=== PATIENT | female | born 1935 | race Caucasian/White ===

== ENCOUNTER → 2016-07-16 | Outpatient (CLI) | payer OTHER ==
[~2016-07-16] MED LIST: ACET-1256 PO; ACET-24 PO; ASPEC325 PO; ASPI81TA28 PO; CALC500C3 PO; CITA20TA9 PO; CLC100X PO; CYAN250T PO; DICY10CA12 PO; DTR5 PO; FRRG PO; METF500T5 PO; METH500T3 PO; MULT-506 PO; MULT1TAB22 PO; OMEP20CA9 PO; POLY335019 PO; PYRI100T4 PO; ROSU5TAB PO; TOLT2TAB9 PO; TRAM-453 PO; ULT50X PO
[2016-07-16 12:29] LABS: ESTIMATED AVERAGE GLUCOSE 134 mg/dl; HA1C FLAG Normal (Normal)
[2016-07-16 13:02] LABS: ALT/SGPT 21 U/L (12-78); AST/SGOT 9 U/L (15-37); BLOOD UREA NITROGEN 14 mg/dl (7-18); BUN/CREATININE RATIO 14.7 (10-20); CARBON DIOXIDE 27 mmol/L (21-32); CHLORIDE 105 mmol/L (98-107); CREATININE 0.94 mg/dl (0.60-1.20); GLUCOSE 126 mg/dl (70-99); POTASSIUM 4.2 mmol/L (3.5-5.1); SODIUM 139 mmol/L (136-145)
[2016-07-16 13:05] LABS: ALB/GLOB RATIO 1.2 (0.9-2); ALKALINE PHOSPHATASE 89 U/L (45-117); CHOLESTEROL 175 mg/dl (0-200); CHOLESTEROL/HDL RATIO 3.3; HDL CHOLESTEROL 53 mg/dl; LDL CHOLESTEROL CALCULATED 87 mg/dl; TRIGLYCERIDES 176 mg/dl (0-150); VERY LOW DENSITY LIPOPROT CALC 35 mg/dl
== END | disposition home or self-care (01) ==
LOC: C.LAB1850 10:42
PROVIDERS: ATTEND Internal Medicine
DX: E11.9 Type 2 diabetes mellitus without complications (principal)

== ENCOUNTER → 2016-07-30 | Outpatient (CLI) | payer OTHER ==
[2016-07-30 15:36] LABS: BASO % 0.4 %; BASO ABS # 0.03 K/uL (0-0.2); COMPLETE YES; EOS % 2.1 %; LYMPH ABS # 2.22 K/uL (1.2-3.4); MEAN CELL VOLUME 90.3 fL (80-100); MEAN CORPUSCULAR HEMOGLOBIN 30.2 pg (25-34); MEAN CORPUSCULAR HGB CONC 33.4 g/dl (32-36); MEAN PLATELET VOLUME 11.8 fL (7.4-10.4); MONO % 7.4 %; NEUT % 62.1 %; PLATELET COUNT 302 K/uL (130-400); RED BLOOD COUNT 4.21 M/uL (4.2-5.4); WHITE BLOOD COUNT 7.94 K/uL (4.8-10.8)
[2016-07-30 16:08] LABS: MAGNESIUM 1.9 mg/dl (1.8-2.4); THYROID STIMULATING HORMONE 1.05 uIu/ml (0.300-4.500)
--- NOTE | 2016-08-05 13:21 | CODING QUERY MEDICAL NECESSITY ---
SUPPORTING DIAGNOSIS NEEDED Dr. Daly, A supporting diagnosis is required for the test/procedure performed on this patient in order for us to be reimbursed by the patient's insurance. Please provide a supporting diagnosis for the following test/procedure listed below next to the test name along with your signature. *If there is no additional diagnosis for this patient that would support the following test/procedure please document that below next to the test/procedure. Test(s)/Procedure(s) that require a supporting diagnosis: * ([id number]) VITAMIN D ASSAY DIAGNOSIS: DATE OF SERVICE: 07/30/16 Provider Signature: Date: Thank you Wale Palomino [facility] Information Management Once completed, please kindly fax back to [phone] For questions please call [phone]
== END | disposition home or self-care (01) ==
LOC: C.LAB1850 13:56
PROVIDERS: ATTEND Internal Medicine
DX: Z00.00 Encounter for general adult medical examination without abnormal findings (principal); E83.42 Hypomagnesemia; E53.8 Deficiency of other specified B group vitamins; M85.80 Other specified disorders of bone density and structure, unspecified site; M25.50 Pain in unspecified joint

== ENCOUNTER → 2016-08-23 | Outpatient (CLI) | payer OTHER ==
[~2016-08-23] MED LIST changes: +GADAVIST IV PRN
--- NOTE | 2016-08-23 13:18 | DIAGNOSTIC IMAGING REPORT ---
MRI brain/internal auditory canals BRAIN COMBO FOR IAC CLINICAL HISTORY: IAC RT HEARING LOSS mental status change. Hearing loss. TECHNIQUE: Multi axial MRI acquisition pre and post gadolinium enhancement. Particular attention to the internal artery canals COMPARISON STUDY: None FINDINGS: Examination confirms the presence of a small 2 mm fat-containing nodule medial aspect right internal auditory canal. This shows no significant postcontrast enhancement. This suggestive of of a small lipoma of the right internal artery canal. 7 then 8th nerves otherwise are unremarkable with no evidence for abnormal postcontrast enhancement. Semicircular canals appear uniform. All remaining components of the study are unremarkable. Moderate chronic small vessel change involving the periventricular and deep white matter regions. IMPRESSION: 1. 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 2. This is immediately adjacent to and potentially encircles the posterior margin of the right 8th nerve. 3. No evidence for an enhancing intracanalicular lesion. 4. Mild chronic small vessel change of the deep white matter regions. 5. Study is otherwise negative. Electronically signed by: Jabier Francisco M.D. 08/23/2016 1:17 PM Dictated Date/Time: 08/23/2016 12:56 PM
== END | disposition home or self-care (01) ==
LOC: C.OPENMRI 10:43
PROVIDERS: ATTEND Hospitalist
DX: H91.90 Unspecified hearing loss, unspecified ear (principal); D17.79 Benign lipomatous neoplasm of other sites

== ENCOUNTER → 2016-11-29 | Outpatient (CLI) | payer OTHER ==
[~2016-11-29] MED LIST changes: -GADAVIST IV PRN
[2016-11-29 12:53] LABS: BLOOD UREA NITROGEN 14 mg/dl (7-18); BUN/CREATININE RATIO 14.1 (10-20); CARBON DIOXIDE 28 mmol/L (21-32); CHLORIDE 106 mmol/L (98-107); CREATININE 0.96 mg/dl (0.60-1.20); GLUCOSE 127 mg/dl (70-99); MAGNESIUM 2.1 mg/dl (1.8-2.4); POTASSIUM 4.9 mmol/L (3.5-5.1); SODIUM 140 mmol/L (136-145)
[2016-11-29 12:56] LABS: CHOLESTEROL 206 mg/dl (0-200); CHOLESTEROL/HDL RATIO 4.8; HDL CHOLESTEROL 43 mg/dl; LDL CHOLESTEROL CALCULATED 120 mg/dl; TRIGLYCERIDES 214 mg/dl (0-150); VERY LOW DENSITY LIPOPROT CALC 43 mg/dl
[2016-11-29 12:57] LABS: CALCIUM 9.6 mg/dl (8.5-10.1)
== END | disposition home or self-care (01) ==
LOC: C.LAB 10:30
PROVIDERS: ATTEND Internal Medicine
DX: E83.42 Hypomagnesemia (principal); E11.9 Type 2 diabetes mellitus without complications; M54.2 Cervicalgia

== ENCOUNTER → 2017-01-03 | Outpatient (CLI) | payer OTHER ==
[~2017-01-03] MED LIST changes: -DTR5 PO; -MULT-506 PO; -TRAM-453 PO
--- NOTE | 2017-01-03 16:00 | MAMMOGRAPHY REPORT ---
BILATERAL DIGITAL SCREENING MAMMOGRAM WITH CAD: 01/03/2017 CLINICAL HISTORY: Routine screening. Patient has no complaints. TECHNIQUE: Bilateral CC, MLO and repeat left MLO views were obtained. Current study was also evaluat ed with a Computer Aided Detection (CAD) system. COMPARISON: Comparison is made to exams dated: 01/01/2016 mammogram, 12/30/2014 mammogram, 12/26/2013 m ammogram, 12/20/2012 mammogram, 12/20/2011 mammogram, and 12/15/2010 mammogram - [facility] nter. BREAST COMPOSITION: The tissue of both breasts is heterogeneously dense, which may obscure small mas ses. FINDINGS: The parenchymal pattern is similar to prior mammograms. No developing mass, architectural distortion or cluster of suspicious microcalcifications is seen in either breast. IMPRESSION: ACR BI-RADS CATEGORY 2: BENIGN There is no mammographic evidence of malignancy. A 1 year screening mammogram is recommended. The pa tient will receive written notification of the results. Approximately 10% of breast cancers are not detected with mammography. A negative mammographic report should not delay biopsy if a clinically suggestive mass is present. [place] Chaudhari M.D. ay/:01/03/2017 14:35:10 Global Regulatory Affairs Manager: Autumn PERRY(Oralia)(Ricardo)(BD), [facility] letter sent: Normal 1/2 BI-RADS Code: ACR BI-RADS Category 2: Benign
== END | disposition home or self-care (01) ==
LOC: C.MAMM 13:48
PROVIDERS: ATTEND Internal Medicine
DX: Z12.31 Encounter for screening mammogram for malignant neoplasm of breast (principal)

== ENCOUNTER 2017-01-04 05:07 | Inpatient (IN) | payer OTHER ==
[2016-11-29 10:30] VITALS: BMI 27.0
--- NOTE | 2016-11-29 11:09 | PAT Medication Instructions ---
Service Date November 29, 2016. Current Home Medication List Acetaminophen (Tylenol), 500 MG PO HS PRN for Pain Aspirin (Aspirin Ec), 81 MG PO HS Calcium Carbonate (Tums), 1 DOSE PO UD Citalopram Hydrobromide (Celexa), 20 MG PO QDL Cyanocobalamin (Vitamin B-12), Unknown Dose PO WK Dicyclomine Hcl (Dicyclomine Hcl), 10 MG PO DAILY Docusate Sodium (Colace), 100 MG PO BID Metformin Hcl Er (Glucophage Er), 500 MG PO TID Methylcellulose (Laxative) (Citrucel), 1 TAB PO UD PRN for Constipation Methylcellulose (Laxative) (Citrucel), 1 DOSE PO UD PRN for PRN Multiple Vitamins W/ Minerals (One Daily For Women), 1 TAB PO QDL Omeprazole (Prilosec), 20 MG PO QAM Polyethylene Glycol 3350 (Miralax), 17 GM PO DAILY Pyridoxine (Vitamin B6), 100 MG PO QDD Rosuvastatin Calcium (Crestor), 5 MG PO 2XWK Tolterodine Tartrate (Tolterodine Tartrate), 4 MG PO QDL Medication Instructions For Your Scheduled Surgery - Continue as directed: Rosuvastatin Calcium (Crestor), 5 MG PO 2XWK Cyanocobalamin (Vitamin B-12), Unknown Dose PO WK - Hold the following medications 48 hours prior to surgery: Metformin Hcl Er (Glucophage Er), 500 MG PO TID - Hold the following medications the morning of surgery: Pyridoxine (Vitamin B6), 100 MG PO QDD Polyethylene Glycol 3350 (Miralax), 17 GM PO DAILY Methylcellulose (Laxative) (Citrucel), 1 DOSE PO UD PRN for PRN Multiple Vitamins W/ Minerals (One Daily For Women), 1 TAB PO QDL Docusate Sodium (Colace), 100 MG PO BID Dicyclomine Hcl (Dicyclomine Hcl), 10 MG PO DAILY Calcium Carbonate (Tums), 1 DOSE PO UD Methylcellulose (Laxative) (Citrucel), 1 TAB PO UD PRN for Constipation Tolterodine Tartrate (Tolterodine Tartrate), 4 MG PO QDL - Take the following medications the morning of surgery with a sip of water: Omeprazole (Prilosec), 20 MG PO QAM Acetaminophen (Tylenol), 500 MG PO HS PRN for Pain (if needed) Citalopram Hydrobromide (Celexa), 20 MG PO QDL - Take the following medications as scheduled the night before surgery: Methylcellulose (Laxative) (Citrucel), 1 DOSE PO UD PRN for PRN (if needed) Docusate Sodium (Colace), 100 MG PO BID Methylcellulose (Laxative) (Citrucel), 1 TAB PO UD PRN for Constipation (if needed) Aspirin (Aspirin Ec), 81 MG PO HS (okay to continue per surgeon) Acetaminophen (Tylenol), 500 MG PO HS PRN for Pain (if needed) If you have any questions please call us at [phone] (Marci Bunn PA-C) or [phone] or [phone]
[2016-11-29 11:34] LABS: BASO % 0.6 %; BASO ABS # 0.04 K/uL (0-0.2); COMPLETE YES; EOS % 2.2 %; HEMATOCRIT 37.9 % (37-47); IG% 0.1 %; LYMPH ABS # 2.01 K/uL (1.2-3.4); MEAN CELL VOLUME 88.1 fL (80-100); MEAN CORPUSCULAR HEMOGLOBIN 29.3 pg (25-34); MEAN CORPUSCULAR HGB CONC 33.2 g/dl (32-36); MEAN PLATELET VOLUME 10.6 fL (7.4-10.4); MONO % 8.5 %; NEUT % 60.6 %; PLATELET COUNT 268 K/uL (130-400); WHITE BLOOD COUNT 7.19 K/uL (4.8-10.8)
[2016-11-29 11:45] LABS: PARTIAL THROMBOPLASTIN RATIO 0.9; PROTHROMBIN TIME (PATIENT) 10.4 SECONDS (9.0-12.0)
[2016-11-29 12:04] LABS: ESTIMATED AVERAGE GLUCOSE 140 mg/dl; HA1C FLAG Normal (Normal)
--- NOTE | 2016-11-29 12:34 | DIAGNOSTIC IMAGING REPORT ---
CHEST PREADMISSION(PA/LAT) CLINICAL HISTORY: Preoperative evaluation. COMPARISON STUDY: No previous studies for comparison. FINDINGS: Lung volumes are normal. Lungs are clear. There is no pneumothorax or pleural effusion. Cardiac size is normal. Mediastinal contours are normal. There is no evidence of pulmonary edema. There is a calcified left lower lung nodule. IMPRESSION: No acute cardiopulmonary findings. Electronically signed by: Brendon Gomes M.D. 11/29/2016 12:33 PM Dictated Date/Time: 11/29/2016 12:32 PM
--- NOTE | 2016-12-30 21:49 | HISTORY & PHYSICAL EXAMINATION ---
DATE OF ADMISSION: 01/04/2017 CHIEF COMPLAINT: Right hip pain. HISTORY OF PRESENT ILLNESS: The patient is a 81-year-old female, who presents for surgical treatment of her right hip. She has got several years history of increasing right hip pain and discomfort followed by Dr. Guerrero initially. He told that she did not need surgery on her hip. She then saw the PA, who told that she did. She has been a little bit confused about his situation, now presents for a possible surgical treatment. She describes buttock pain and groin pain, thigh pain radiating down to her knee. No numbness or radicular symptoms. She has got constant pain. The more she walks, the more it hurts. She has difficulty putting her shoes and socks on. She would like to have this fixed. PAST MEDICAL HISTORY: Past medical history is significant for: 1. Diabetes with a hemoglobin A1c of 6.5. 2. Elevated cholesterol. 3. Depression. 4. Peptic ulcer disease. 5. Mild gastroesophageal reflux with hiatal hernia. PAST SURGICAL HISTORY: Include finger surgery. ALLERGIES: SULFA WHICH CAUSE HIVES. ALSO DESCRIBES ALLERGY TO NIACIN. CURRENT MEDICINES: 1. Metformin 500 mg three times a day. 2. Oxybutynin 5 mg. 3. Omeprazole 20 mg. 4. Crestor 5 mg twice a day. 5. Citrucel once a day. 6. Colace 100 mg twice a day. 7. Baby aspirin once a day. 8. Ibuprofen p.r.n. 9. Vitamin B6. 10. Vitamin B12. 11. Tums. 12. Unspecified medicine 13. Magnesium. 14. Dicyclomine. SOCIAL HISTORY: A 81-year-old female patient from [place]. She is . FAMILY HISTORY: Significant for heart disease, diabetes and breast cancer. REVIEW OF SYSTEMS: Negative for chest pain and shortness of breath. No history of DVT. She does have diabetes which is reasonably well-controlled. No known bleeding problems. PHYSICAL EXAMINATION: GENERAL: Reveals a pleasant elderly female. She looks to be in reasonably good health. HEENT: Benign. NECK: Supple. No lymphadenopathy. LUNGS: Clear to auscultation. HEART: Has a regular rate and rhythm. ABDOMEN: Soft, nontender, nondistended. EXTREMITIES: Grossly neurovascularly intact except as follows. Examination of the right leg reveals the patient walks with an antalgic gait. Leg lengths clinically appear pretty equal. She does have stiffness with hip motion. Hip internal rotation recreates her buttock pain. Internal rotation is neutral. External rotation is 25. Slight flexion contracture. Negative straight leg raise. X-RAYS: X-rays of the right hip were reviewed. X-rays show advanced right hip DJD. She has got complete loss of her joint space. She has got osteophytes around the acetabulum. I did review her lumbar spine films. It shows some mild arthritic changes in her spine. Fairly mild stenosis particularly at L5-S1. ASSESSMENT: A 81-year-old white female with right hip pain and discomfort consistent with advanced hip arthritis. It is limiting her lifestyle and she would like to have her hip fixed. PLAN: We are going to take her to the operating room and do a right total hip replacement. The risks and benefits of this procedure were explained to the patient including, but not limited to DVT, PE, , infection, neurological injury, vascular injury, bleeding problem, pain, limited range of motion, stiffness, failure to relieve her symptoms, incomplete relief of symptoms, need for further surgery in the future, fracture, leg length inequality, nerve palsy, dislocation, etc. The patient understands and desires to proceed. Informed consent was obtained. I did talk to her that this can help her hip pain and not necessarily her back pain. She is aware of that. She knows to hold her metformin 2 days preop. She is planning to be discharged to home using [facility] home health program. She will hold her ibuprofen 10 days preop. I will see her back 2 weeks postop. JASON
[2017-01-04] VITALS (29 sets, daily range): BP systolic 86–142; BP diastolic 49–71; PULSE 54–78; TEMP 36.3–37; O2SAT 93–100; Ht 165.1 cm; Wt 74.9 kg
[~2017-01-04] VITALS: Ht 165.1 cm; Wt 74.9 kg
[~2017-01-04 05:07] MED LIST changes: -ACET-24 PO; -ASPEC325 PO; -FRRG PO; -ULT50X PO
[2017-01-04] MEDS ORDERED: CEFAZOLIN 2000 MG/60 ML D5W 60 ML IV SCH (06:00)
[2017-01-04] MEDS ORDERED: SCOPOLAMINE 1.5 MG TDSY TD SCH (06:00)
[2017-01-04] MEDS ORDERED: METOCLOPRAMIDE HCL 10 MG TAB PO SCH (06:00)
[2017-01-04] MEDS ORDERED: ACETAMINOPHEN 500 MG TAB PO SCH (06:00)
[2017-01-04] MEDS ORDERED: LACTATED RINGER'S 1000ML 1,000 ML IV SCH ×2 (06:00)
[2017-01-04] MEDS ORDERED: TRANEXAMIC ACID INJ 1,000 MG in SODIUM CHLORIDE 0.9% 100ML 100 ML IV SCH ×2 (06:00→14:30)
[2017-01-04] MEDS ORDERED: LACTATED RINGER'S 1000ML 500 ML IV ONE (06:00)
[2017-01-04] MEDS ORDERED: FAMOTIDINE 20 MG TAB PO SCH (06:00)
[2017-01-04] MEDS ORDERED: GABAPENTIN 300 MG CAP PO SCH (06:00)
[2017-01-04] MEDS ORDERED: BUPIVACAINE/EPINEPHRINE 0.5% MPF 1:200,000 10 ML VIAL ONE (06:36)
[2017-01-04] MEDS ORDERED: BUPIVACAINE 0.5 % 5 MG/1 ML PF 10ML VIAL ONE (06:38)
[2017-01-04] MEDS ORDERED: MIDAZOLAM HCL 1 MG/ML 2ML VIAL ONE ×2 (06:42)
[2017-01-04] MEDS ORDERED: FENTANYL CITRATE INJ 50 MCG/1 ML 2 ML VIAL ONE ×2 (06:42→08:01)
[2017-01-04] MEDS ORDERED: MoRPHine SULFATE PF 1 MG/ML 10 ML AMP/VIAL ONE (06:44)
--- NOTE | 2017-01-04 06:49 | History & Physical Bridge Note ---
H&P Re-Evaluation Bridge Note: I have examined the patient, reviewed the History & Physical and in the interval since the performance of the History & Physical I have noted the following changes of clinical significance: No changes noted
[2017-01-04] MEDS ORDERED: DC INTRASPINAL MORPHINE SCH (06:50)
[2017-01-04] MEDS ORDERED: BACITRACIN 50000 UNIT VIAL ONE (06:51)
[2017-01-04] MEDS ORDERED: DiphenhydrAMINE HCL 50 MG/ML VIAL ONE (07:13)
[2017-01-04] MEDS ORDERED: ONDANSETRON INJ 2 MG/ML 2 ML VIAL ONE (07:13)
[2017-01-04] MEDS ORDERED: SODIUM CHLORIDE 0.9% 1000ML 1,000 ML IV PRN (07:27)
[2017-01-04] MEDS ORDERED: NALOXONE HCL INJ 0.08 MG in SYRINGE 1.8 ML IV PRN (07:27)
[2017-01-04] MEDS ORDERED: LACTATED RINGER'S 1000ML 500 ML IV PRN (07:27)
[2017-01-04] MEDS ORDERED: NALOXONE HCL INJ 1 MG in SODIUM CHLORIDE 0.9% 1000ML 1,000 ML IV PRN ×4 (07:27)
[2017-01-04] MEDS ORDERED: NALBUPHINE HCL INJ 10 MG/ML AMP IV PRN (07:30)
[2017-01-04] MEDS ORDERED: ONDANSETRON INJ 2 MG/ML 2 ML VIAL IV PRN ×3 (07:30→08:30)
[2017-01-04] MEDS ORDERED: MoRPHine SULFATE PF 1 MG/ML 10 ML AMP/VIAL EPI PRN (07:30)
[2017-01-04] MEDS ORDERED: ATROPINE SULFATE 0.1 MG/ML 5ML SYR IV PRN (07:30)
[2017-01-04] MEDS ORDERED: DiphenhydrAMINE HCL 50 MG/ML VIAL IV PRN (07:30)
[2017-01-04] MEDS ORDERED: MEPERIDINE HCL 25 MG/ML CARP IV PRN ×2 (07:30)
[2017-01-04] MEDS ORDERED: NO NARCOTICS OR SEDATIVES SCH (07:30)
[2017-01-04] MEDS ORDERED: PHENYLEPHRINE 100MCG/ML 5ML SYR IV PRN (07:30)
[2017-01-04] MEDS ORDERED: NALOXONE HCL 0.4 MG/1 ML VIAL/CARP IV PRN (07:30)
[2017-01-04] MEDS ORDERED: PROMETHAZINE HCL INJ 6.25 MG in SODIUM CHLORIDE 0.9% 50ML 50 ML IV PRN (07:30)
[2017-01-04] MEDS ORDERED: EpHEDrine SULFATE INJ 50 MG/ML AMP IV PRN ×2 (07:30)
[2017-01-04] MEDS ORDERED: KETOROLAC TROMETHAMINE 30 MG/ML VIAL IV. PRN ×2 (07:30)
[2017-01-04] MEDS ORDERED: EpHEDrine SULFATE INJ 50 MG/ML AMP ONE (07:31)
--- NOTE | 2017-01-04 08:23 | [facility] Post Operative Brief Note ---
Immediate Operative Summary Operative Date Jan 04, 2017. Pre-Operative Diagnosis Right Hip Advanced Degenerative Joint Disease Post-Operative Diagnosis Right Hip Advanced Degenerative Joint Disease Procedure(s) Performed Right Total Hip Arthroplasty--Uncemented Surgeon Dr. Gore Explosive Technician Surgeon(s) ZULLY Graham Estimated Blood Loss 200 ml Findings Right Hip DJD Fluids (cc crystalloids) 1500 cc Specimens A. Right Femoral Head Drains None Anesthesia Spinal Complication(s) None Disposition Recovery Room / PACU
[2017-01-04] MEDS ORDERED: METHYLCELLULOSE POWDER 454 GM JAR PO PRN (08:30)
[2017-01-04] MEDS ORDERED: BISACODYL 10 MG SUPP PR PRN (08:30)
[2017-01-04] MEDS ORDERED: METOCLOPRAMIDE HCL INJ 5 MG/ML 2 ML VIAL IV PRN (08:30)
[2017-01-04] MEDS ORDERED: MAGNESIUM HYDROXIDE SUSP 30 ML UDC PO PRN (08:30)
[2017-01-04] MEDS ORDERED: ALUMINUM/MAGNESIUM/SIMETH (MAALOX MAX) 30 ML UDC PO PRN (08:30)
[2017-01-04] MEDS ORDERED: ZOLPIDEM TARTRATE 5 MG TAB PO PRN (08:30)
[2017-01-04] MEDS ORDERED: GLUCOSE 10 TABS/TUBE PO PRN (08:45)
[2017-01-04] MEDS ORDERED: DEXTROSE 50% 50 ML SYR IV PRN (08:45)
[2017-01-04] MEDS ORDERED: GLUCOSE 40% GEL 15 GM TUBE PO PRN (08:45)
[2017-01-04] MEDS ORDERED: GLUCAGON FOR INJ 1 MG VIAL SQ PRN (08:45)
[2017-01-04] MEDS ORDERED: DOCUSATE SODIUM 100 MG CAP PO SCH (09:00)
[2017-01-04] MEDS: POLYETHYLENE (MIRALAX) 17 GM PACK PO SCH (09:00)
[2017-01-04] MEDS ORDERED: NON-FORMULARY MEDICATION (Omeprazole (Prilosec) 20 MG) PO SCH (09:00)
--- NOTE | 2017-01-04 09:18 | Anesthesiology Progress Note ---
Anesthesia Post Op Note Date & Time Jan 04, 2017 at 09:18 Vital Signs Pain Intensity: 0 Vital Signs Past 12 Hours Date Time Temp Pulse Resp B/P (MAP) Pulse Ox O2 Delivery O2 Flow Rate FiO2 01/04/17 09:15 36.5 01/04/17 09:12 59 15 100 01/04/17 09:12 60 15 01/04/17 09:11 95/85 01/04/17 09:07 59 16 100 01/04/17 09:07 59 16 01/04/17 09:06 114/50 01/04/17 09:02 61 19 98 01/04/17 09:02 61 19 01/04/17 09:01 125/48 01/04/17 08:57 60 9 01/04/17 08:57 60 9 100 01/04/17 08:56 120/72 01/04/17 08:52 61 16 01/04/17 08:52 61 16 100 01/04/17 08:51 132/51 01/04/17 08:47 61 12 01/04/17 08:47 61 12 100 01/04/17 08:46 130/50 01/04/17 08:44 Mask 3 01/04/17 08:42 65 13 01/04/17 08:42 63 13 100 01/04/17 08:41 62 17 01/04/17 08:41 63 17 128/50 100 01/04/17 08:36 64 10 01/04/17 08:36 64 10 133/54 100 01/04/17 08:31 66 13 124/50 100 01/04/17 08:31 66 13 01/04/17 08:26 64 15 126/48 99 01/04/17 08:26 65 15 01/04/17 08:24 114/43 01/04/17 08:21 36. 63 14 114/43 99 Mask 10 01/04/17 05:38 36.7 61 20 142/71 94 Room Air Notes Mental Status: alert / awake / arousable, participated in evaluation Pt Amnestic to Procedure: Yes Nausea / Vomiting: adequately controlled Pain: adequately controlled Airway Patency, RR, SpO2: stable & adequate BP & HR: stable & adequate Hydration State: stable & adequate Anesthetic Complications: no major complications apparent
--- NOTE | 2017-01-04 09:27 | DIAGNOSTIC IMAGING REPORT ---
AP PELVIS, CROSSTABLE LATERAL RIGHT HIP History: Right total hip arthroplasty. Degenerative arthritis. Postop. FINDINGS: The patient is status post a right total hip arthroplasty. The hardware is intact. No fracture or dislocation. Skin charly are in place. IMPRESSION: Right total hip arthroplasty. No evidence for hardware complication Electronically signed by: Rubén Tomlinson M.D. 01/04/2017 9:26 AM Dictated Date/Time: 01/04/2017 9:25 AM
[2017-01-04] MEDS: DOCUSATE SODIUM 100 MG CAP PO SCH ×2 (10:43→20:51)
[2017-01-04] MEDS: MULTIVITAMIN TAB PO SCH (10:43)
[2017-01-04] MEDS: PANTOprazole SOD 40 MG TAB PO SCH (10:43)
[2017-01-04] MEDS: ASPIRIN 325 MG ECTAB PO SCH ×2 (10:43→20:51)
[2017-01-04] MEDS: ROSUVASTATIN CALCIUM 10 MG TAB PO SCH (10:43)
[2017-01-04] MEDS: DICYCLOMINE HCL 10 MG CAP PO SCH (10:43)
[2017-01-04] MEDS: SODIUM CHLORIDE 0.9% 1000ML 1,000 ML IV SCH ×2 (10:44→20:00)
[2017-01-04] MEDS: INSULIN HUMAN REGULAR SC SCH ×3 (12:00→20:45)
[2017-01-04] MEDS: FERROUS GLUCONATE 324 MG TAB PO SCH ×2 (12:49→17:45)
[2017-01-04] MEDS: CITALOPRAM 20 MG TAB PO SCH (12:49)
[2017-01-04] MEDS: TOLTERODINE TARTRATE 2 MG TAB PO SCH (12:49)
[2017-01-04] MEDS: CEROVITE ADV FORMULA TAB PO SCH (12:50)
[2017-01-04] MEDS: KETOROLAC TROMETHAMINE 15 MG/ML VIAL IV. SCH ×2 (14:07→20:00)
[2017-01-04] MEDS: ACETAMINOPHEN 500 MG TAB PO SCH ×2 (14:07→21:34)
[2017-01-04] MEDS: CEFAZOLIN IV 1,000 MG in DEXTROSE 5% 50ML 50 ML IV SCH ×2 (15:50→23:53)
[2017-01-04] MEDS: PYRIDOXINE HCL 50 MG TAB PO SCH (17:45)
--- NOTE | 2017-01-04 19:09 | Progress Note ---
Orthopedic SOAP Note Subjective Date of Service: Jan 04, 2017. Post OP Day: Post-op from Right THR Reports: feeling well Additional Notes: Still pretty sedated from anesthesia. Follows commands, but takes some prodding. Problem List Medical Problems: (1) Fall Status: Acute (2) Fracture of coccyx Status: Acute Objective calves soft nontender, N/V intact, hip located, capillary refill less than 2 sec., dressing C/D/I, toes mobile Date Time Temp Pulse Resp B/P (MAP) Pulse Ox O2 Delivery O2 Flow Rate FiO2 01/04/17 18:07 14 96 01/04/17 18:04 65 112/58 (76) 01/04/17 17:48 66 104/49 (67) 01/04/17 17:30 65 86/49 (61) 01/04/17 17:00 14 98 01/04/17 15:49 14 98 01/04/17 15:09 36.3 65 16 95/52 (66) 100 Nasal Cannula 2.0 01/04/17 15:00 16 99 01/04/17 14:19 63 114/63 (80) 99 Nasal Cannula 2.0 01/04/17 14:05 14 98 01/04/17 12:45 16 97 01/04/17 12:35 59 18 110/63 (79) 97 01/04/17 11:48 14 99 01/04/17 11:33 57 19 110/61 (77) 99 Nasal Cannula 2.0 01/04/17 11:07 78 16 97/61 (73) 93 01/04/17 10:39 14 99 01/04/17 10:35 59 18 104/58 (73) 99 01/04/17 10:05 54 18 115/55 (75) 99 Room Air 01/04/17 10:02 99 Nasal Cannula 2.0 01/04/17 09:35 18 99 01/04/17 09:35 36.5 60 18 108/54 (72) 99 Nasal Cannula 2.0 01/04/17 09:35 99 Nasal Cannula 2.0 01/04/17 09:15 36.5 01/04/17 09:12 59 15 100 01/04/17 09:12 60 15 01/04/17 09:11 95/85 01/04/17 09:07 59 16 100 01/04/17 09:07 59 16 01/04/17 09:06 114/50 01/04/17 09:02 61 19 98 01/04/17 09:02 61 19 01/04/17 09:01 125/48 01/04/17 08:57 60 9 01/04/17 08:57 60 9 100 01/04/17 08:56 120/72 01/04/17 08:52 61 16 01/04/17 08:52 61 16 100 01/04/17 08:51 132/51 01/04/17 08:47 61 12 01/04/17 08:47 61 12 100 01/04/17 08:46 130/50 01/04/17 08:44 Mask 3 01/04/17 08:42 65 13 01/04/17 08:42 63 13 100 01/04/17 08:41 62 17 01/04/17 08:41 63 17 128/50 100 01/04/17 08:36 64 10 01/04/17 08:36 64 10 133/54 100 01/04/17 08:31 66 13 124/50 100 01/04/17 08:31 66 13 01/04/17 08:26 64 15 126/48 99 01/04/17 08:26 65 15 01/04/17 08:24 114/43 01/04/17 08:21 36. 63 14 114/43 99 Mask 10 01/04/17 05:38 36.7 61 20 142/71 94 Room Air Additional Notes: X-ray - Hip located. No signs of problems. Components appropriately positioned. Assessment Post-op from Right THR. Doing well. Pain controlled. Hip located. N/V intact. Still a little sedated from anesthesia. Plan 1.) DVT prophylaxis - TEDS + SCDs + Aspirin 2.) IV antibiotics for 24 hours. 3.) Pain contol - doing well with current treatment 4.) Disposition - plan to discharge to home with HH if does well in PT. May need SNR or HSNV.
[2017-01-04] MEDS: SENNA 8.6 MG TAB PO SCH (20:52)
[2017-01-04] MEDS ORDERED: ULT50X PO (21:16)
[2017-01-04] MEDS ORDERED: ACET-24 PO (21:16)
[2017-01-04] MEDS ORDERED: FRRG PO (21:16)
[2017-01-04] MEDS ORDERED: ASPEC325 PO (21:16)
--- NOTE | 2017-01-04 21:19 | Discharge Instructions ---
Discharge Instructions Date of Service Jan 04, 2017. Admission Reason for Admission: Right Hip Pain, Degenerative Joint Disease Discharge Discharge Diagnosis / Problem: Right Hip Replacement Discharge Goals Goal(s): Decrease discomfort, Improve function, Increase independence, Improve disease control, Therapeutic intervention Activity Recommendations Activity Limitations: per Instructions/Follow-up section (Total Hip Precautions ) Weightbearing Status: Right weightbearing . Instructions / Follow-Up Instructions / Follow-Up ACTIVITY RECOMMENDATIONS: Physical Therapy: * Aggressive physical therapy is not usually needed. You will learn to take care of yourself safely and walk. * Follow the "Hip Precautions Instructions." * In some cases, the social media marketing specialist at the hospital will arrange to have a therapist come to your house for the first couple of weeks to help you learn these skills. * You need to practice on your own or with the help of a family member as needed. * When you learn these skills, most of the therapy can be done on your own. Home Exercise: * You were shown a series of exercises in the hospital. Do these exercises three to four times each day including the exercises you were shown in physical therapy. Walking: * Get up and walk several times each day. For the first four weeks, try not to stand or walk for more than one hour at a time. If you do stand or walk for more than one hour, you will not hurt anything, but your leg will likely swell. * As you feel comfortable, you may change from the walker or crutches to a cane and then to independent walking. MEDICATIONS: New Medicine: * You will likely be taking one or more of these medicines: 1. Tramadol - Take, as directed, when you need it, every four to six hours to control your pain. 2. Iron Sulfate - Take three times each day for the month after surgery to help you replace the blood lost during surgery. 3. Aspirin - Thins your blood to lessen the chance of forming a blood clot. * The most common side effects of pain medicine and iron are nausea and constipation. If nausea or constipation is too much of a problem or if you have any questions about your new medicines or doses, call [facility] at . We will try to help you manage these issues. VERY IMPORTANT TO READ AND REVIEW" Pain: * The immediate post-operative period after hip replacement surgery is often quite painful. * You are given a prescription for pain medicine. You should take it, as directed, when you need it, especially before physical therapy and before going to bed. Pain that interferes with sleep is very common and can last several months. * You will likely need pain medicine for the first two to four weeks. It will not stop all of the pain. The pain will lessen and as you feel better, you may change to milder pain medicine such as Tylenol. * The most common side effects of pain medicine are nausea and constipation, so don't take more than you need. SPECIAL CARE INSTRUCTIONS: TEDs/Elastic Stockings: * The white elastic stockings help limit swelling and prevent blood clots from forming in your legs. The more you wear them, the more they work. * Wear them for six weeks. Prevention of Infection: * Take antibiotics one hour before any dental cleaning, dental work, urological procedure, gastrointestinal procedure or any invasive surgery in order to prevent your new joint from getting infected. * You may get the antibiotics from the doctor performing the procedure or you may call our office at before and we will call in a prescription to the pharmacy of your choice. Things to Watch For: * Drainage from the incision site that occurs more than one week after your surgery. * Severely increased leg pain or swelling. * Increased redness at the incision site. * Fever above 102 degrees Fahrenheit. * Unusual chest pain or shortness of breath. * Unusual pain or burning with urination. Call [facility] at with any of the above problems or if you have any questions about your medicines or recovery. FOLLOW UP VISIT: Make an appointment to see your doctor for approximately two weeks after surgery for a progress check and staple removal by calling the office at . Current Hospital Diet Patient's current hospital diet: Diabetes Type 2 Diet Discharge Diet Recommended Diet: Diabetes Type 2 Diet Procedures Procedures Performed: Right Total Hip Arthroplasty--Uncemented Pending Studies Studies pending at discharge: no Laboratory Results Hemoglobin A1c Test 11/29/16 11:15 Range/Units Estimated Average Glucose 140 mg/dl Hemoglobin A1c 6.5 H 4.5-5.6 % Lipid Panel Test 11/29/16 11:15 Range/Units Triglycerides Level 214 H 0-150 mg/dl Cholesterol Level 206 H 0-200 mg/dl HDL Cholesterol 43 mg/dl Cholesterol/HDL Ratio 4.8 LDL Cholesterol, Calculated 120 mg/dl Medical Emergencies . Who to Call and When: Medical Emergencies: If at any time you feel your situation is an emergency, please call 911 immediately. . Non-Emergent Contact Non-Emergency issues call your: Surgeon . "Provider Documentation" section prepared by Geovany Gore. . VTE Core Measure Inpt VTE Proph given/why not?: Other Anticoagulation, T.E.D. Stockings, SCD's
--- NOTE | 2017-01-04 21:22 | Discharge Instructions ---
Discharge Instructions Date of Service Jan 04, 2017. Admission Reason for Admission: Right Hip Pain, Degenerative Joint Disease Discharge Discharge Diagnosis / Problem: Right Hip Replacement Discharge Goals Goal(s): Decrease discomfort, Improve function, Increase independence, Improve disease control, Therapeutic intervention Activity Recommendations Activity Level: Assistance Required Therapies: Physical Therapy (Total Hip Precautions.), Occupational Therapy Weightbearing Status: Right weightbearing . Additional Information Patient informed of condition: Yes Advance Directives: Yes DNR: No Level of Care: Acute Rehab Communicable Disease: No Prognosis: Improving Instructions / Follow-Up Instructions / Follow-Up ACTIVITY RECOMMENDATIONS: Physical Therapy: * Aggressive physical therapy is not usually needed. You will learn to take care of yourself safely and walk. * Follow the "Hip Precautions Instructions." * In some cases, the manager social media at the hospital will arrange to have a therapist come to your house for the first couple of weeks to help you learn these skills. * You need to practice on your own or with the help of a family member as needed. * When you learn these skills, most of the therapy can be done on your own. Home Exercise: * You were shown a series of exercises in the hospital. Do these exercises three to four times each day including the exercises you were shown in physical therapy. Walking: * Get up and walk several times each day. For the first four weeks, try not to stand or walk for more than one hour at a time. If you do stand or walk for more than one hour, you will not hurt anything, but your leg will likely swell. * As you feel comfortable, you may change from the walker or crutches to a cane and then to independent walking. MEDICATIONS: New Medicine: * You will likely be taking one or more of these medicines: 1. Tramadol - Take, as directed, when you need it, every four to six hours to control your pain. 2. Iron Sulfate - Take two times each day for the month after surgery to help you replace the blood lost during surgery. 3. Aspirin - Thins your blood to lessen the chance of forming a blood clot. * The most common side effects of pain medicine and iron are nausea and constipation. If nausea or constipation is too much of a problem or if you have any questions about your new medicines or doses, call [facility] at . We will try to help you manage these issues. VERY IMPORTANT TO READ AND REVIEW" Pain: * The immediate post-operative period after hip replacement surgery is often quite painful. * You are given a prescription for pain medicine. You should take it, as directed, when you need it, especially before physical therapy and before going to bed. Pain that interferes with sleep is very common and can last several months. * You will likely need pain medicine for the first two to four weeks. It will not stop all of the pain. The pain will lessen and as you feel better, you may change to milder pain medicine such as Tylenol. * The most common side effects of pain medicine are nausea and constipation, so don't take more than you need. SPECIAL CARE INSTRUCTIONS: TEDs/Elastic Stockings: * The white elastic stockings help limit swelling and prevent blood clots from forming in your legs. The more you wear them, the more they work. * Wear them for six weeks. Prevention of Infection: * Take antibiotics one hour before any dental cleaning, dental work, urological procedure, gastrointestinal procedure or any invasive surgery in order to prevent your new joint from getting infected. * You may get the antibiotics from the doctor performing the procedure or you may call our office at before and we will call in a prescription to the pharmacy of your choice. Things to Watch For: * Drainage from the incision site that occurs more than one week after your surgery. * Severely increased leg pain or swelling. * Increased redness at the incision site. * Fever above 102 degrees Fahrenheit. * Unusual chest pain or shortness of breath. * Unusual pain or burning with urination. Call [facility] at with any of the above problems or if you have any questions about your medicines or recovery. FOLLOW UP VISIT: Make an appointment to see your doctor for approximately two weeks after surgery for a progress check and staple removal by calling the office at . Current Hospital Diet Patient's current hospital diet: Diabetes Type 2 Diet Discharge Diet Recommended Diet: Diabetes Type 2 Diet Procedures Procedures Performed: Right Total Hip Arthroplasty--Uncemented Pending Studies Studies pending at discharge: no Laboratory Results Hemoglobin A1c Test 11/29/16 11:15 Range/Units Estimated Average Glucose 140 mg/dl Hemoglobin A1c 6.5 H 4.5-5.6 % Lipid Panel Test 11/29/16 11:15 Range/Units Triglycerides Level 214 H 0-150 mg/dl Cholesterol Level 206 H 0-200 mg/dl HDL Cholesterol 43 mg/dl Cholesterol/HDL Ratio 4.8 LDL Cholesterol, Calculated 120 mg/dl Medical Emergencies . Who to Call and When: Medical Emergencies: If at any time you feel your situation is an emergency, please call 911 immediately. . Non-Emergent Contact Non-Emergency issues call your: Surgeon . . "Provider Documentation" section prepared by Geovany Gore. . Core Measure Problem Core Measures: None
[2017-01-05] VITALS (13 sets, daily range): BP systolic 96–123; BP diastolic 53–60; PULSE 58–69; TEMP 36.7–37.4; O2SAT 91–98
[2017-01-05] MEDS: KETOROLAC TROMETHAMINE 15 MG/ML VIAL IV. SCH ×4 (01:36→20:28)
[2017-01-05 05:39] LABS: BASO % 0.2 %; BASO ABS # 0.02 K/uL (0-0.2); COMPLETE YES; EOS % 2.6 %; HEMATOCRIT 30.1 % (37-47); IG% 0.2 %; LYMPH % 15.9 %; LYMPH ABS # 1.53 K/uL (1.2-3.4); MEAN CELL VOLUME 91.2 fL (80-100); MEAN CORPUSCULAR HEMOGLOBIN 28.8 pg (25-34); MEAN CORPUSCULAR HGB CONC 31.6 g/dl (32-36); MEAN PLATELET VOLUME 10.7 fL (7.4-10.4); MONO % 9.9 %; NEUT % 71.2 %; PLATELET COUNT 202 K/uL (130-400); WHITE BLOOD COUNT 9.62 K/uL (4.8-10.8)
[2017-01-05] MEDS: SODIUM CHLORIDE 0.9% 1000ML 1,000 ML IV SCH (05:39)
[2017-01-05] MEDS: ACETAMINOPHEN 500 MG TAB PO SCH ×3 (05:41→21:22)
[2017-01-05 06:05] LABS: BUN/CREATININE RATIO 15.2 (10-20); CREATININE 0.89 mg/dl (0.60-1.20); POTASSIUM 4.2 mmol/L (3.5-5.1)
[2017-01-05 06:06] LABS: CALCIUM 7.8 mg/dl (8.5-10.1)
--- NOTE | 2017-01-05 08:07 | Anesthesiology Progress Note ---
Anesthesia Post Op Note Date & Time Jan 05, 2017 at 08:06 Vital Signs Vital Signs Past 12 Hours Date Time Temp Pulse Resp B/P (MAP) Pulse Ox O2 Delivery O2 Flow Rate FiO2 01/05/17 07:11 Room Air 01/05/17 07:11 37.0 58 16 102/60 (74) 96 Room Air 01/05/17 06:30 16 91 01/05/17 05:30 16 97 01/05/17 05:20 102/58 (73) 01/05/17 04:30 16 97 01/05/17 03:30 14 98 01/05/17 03:07 36.7 61 18 96/58 (71) 98 Nasal Cannula 2.0 01/05/17 02:30 16 98 01/05/17 01:30 16 98 01/05/17 00:30 16 98 01/04/17 23:59 Nasal Cannula 2.0 01/04/17 23:30 16 98 01/04/17 22:47 37.0 64 16 96/56 (69) 98 Nasal Cannula 2.0 01/04/17 22:34 16 98 01/04/17 21:49 16 97 01/04/17 20:53 16 96 Notes Mental Status: alert / awake / arousable, participated in evaluation Pt Amnestic to Procedure: Yes Nausea / Vomiting: adequately controlled Pain: adequately controlled Airway Patency, RR, SpO2: stable & adequate BP & HR: stable & adequate Hydration State: stable & adequate Neuraxial Anesthesia: was administered, sensory block resolved Anesthetic Complications: no major complications apparent
[2017-01-05] MEDS: INSULIN HUMAN REGULAR SC SCH ×4 (08:19→21:21)
[2017-01-05] MEDS: DICYCLOMINE HCL 10 MG CAP PO SCH (08:39)
[2017-01-05] MEDS: ROSUVASTATIN CALCIUM 10 MG TAB PO SCH (08:39)
[2017-01-05] MEDS: MULTIVITAMIN TAB PO SCH (08:40)
[2017-01-05] MEDS: ASPIRIN 325 MG ECTAB PO SCH ×2 (08:40→20:29)
[2017-01-05] MEDS: PANTOprazole SOD 40 MG TAB PO SCH (08:40)
[2017-01-05] MEDS: POLYETHYLENE (MIRALAX) 17 GM PACK PO SCH (08:40)
[2017-01-05] MEDS: DOCUSATE SODIUM 100 MG CAP PO SCH ×2 (08:41→20:29)
[2017-01-05] MEDS: FERROUS GLUCONATE 324 MG TAB PO SCH ×3 (08:41→18:12)
--- NOTE | 2017-01-05 08:57 | OPERATIVE REPORT ---
DATE: 01/04/2017 PREOPERATIVE DIAGNOSIS: Right hip DJD. POSTOPERATIVE DIAGNOSIS: Same. PROCEDURE PERFORMED: Right uncemented total hip arthroplasty. SURGEON: Geovany Gore M.D. INFRASTRUCTURE ANALYST: Tahir Tena PA-C. COMPLICATIONS: None. ESTIMATED BLOOD LOSS: 200 cc. FLUID REPLACEMENT: 150 cc of crystalloid. ANESTHESIA: Spinal. DRAINS: None. SPECIMENS: Right femoral head sent for pathology. OPERATIVE INDICATIONS: The patient is a 81-year-old fairly active female who has had a several year history of gradual progressive increase of right hip pain and discomfort. She had failed conservative treatment and the symptoms just progressed. She became more debilitated by her disease. X-rays show progressive hip arthritis. The patent elected to proceed with total hip arthroplasty. OPERATIVE FINDINGS: Operative findings revealed advanced right hip DJD. 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 She had a fairly large joint effusion. Some moderate synovitis. OPERATIVE IMPLANTS: Operative implants consists of: 1. Biomet G7 size 52 mm acetabular shell. 2. [place] hole eliminator. 3. 6.5 cancellous acetabular screws one at 35 mm in length and one at 20 mm in length. 4. Highly crosslinked polyethylene liner with a 52 mm outer diameter and a 36 inner diameter. 5. DePuy size 12 small stature AML femoral stem. 6. +8.5/36 mm metal articular ball. OPERATIVE PROCEDURE: The patient was taken to the operating room, identified and placed on the operating room table in supine position. All contact areas were appropriately padded. IV antibiotics were provided by anesthesia team. A spinal anesthetic was implemented by anesthesia team. Prado catheter was placed in a sterile fashion. The patient was then placed in the left lateral decubitus position. An axillary roll was placed. A Stbert hip positioner was used for positioning. The right hip and leg were then prepped and draped in the usual sterile fashion. A posterolateral approach to the right hip was then performed through curvilinear incision centered over the greater trochanter. Sharp dissection was carried through the subcutaneous tissue down to the level of the IT gland and gluteal fashion. The IT band and gluteal fashion was incised longitudinally in line with the skin incision. The greater trochanteric bursa was excised. The piriformis and external rotators were tagged and taken off the posterior aspect of the femur. Great care was taken throughout the procedure to protect the sciatic nerve at all times. Posterior capsulotomy was then performed leaving a large flap for later repair. The hip was internally rotated and dislocated. Femoral neck osteotomy cut was made with the final cut about 13 mm above the lesser trochanter. The femoral head was removed and sent for pathology. The femur was retracted anteriorly. Attention was then drawn to the acetabulum. The acetabulum labrum was excised. The fulvinar fat was excised. Sequential reaming of the acetabulum was then performed beginning with a size 43 and progressing up to a 51. A 52 mm Biomet G7 acetabular shell was then placed in about 40 degrees of lateral opening and 20 degrees of anteversion. It was fixed with 2.65 cancellous acetabular screws. Some osteophytes were taken off anteriorly and anterior inferiorly. A trial liner was placed. Attention was then drawn to the femur. The proximal femur was entered with a cookie cutter followed by a canal finder and a lateralizing reamer. Sequential reamings off the femur was then performed beginning with a size 9 and progressing up to an 11.5. I broach beginning with a size 10.5 small broach and progressing up to 12 small. We got good metaphyseal fit. Calcar reamer was used to smoothen off the calcar. We trialed different neck lengths. The hip was fully stable with all neck lengths. Leg lengths seemed to be best recreated with the +8.5 head. She had full stability in full extension and external rotation and flexion to 90 degrees, internal rotation to over 60 degrees. We elected to use these implants. All trial implants were removed. An apex hole eliminator was placed. A highly crosslinked polyethylene liner was placed. A DePuy size 12 small stature 80 mm femoral stem was then impacted into position. A +8.5/36 mm metal articular ball was placed. The hip was once again located and found to be stable. Attention was then drawn toward closing. The wound was irrigated with copious amounts of pulsatile lavage solution. I did inject locally with 60 cc of 0.5% Marcaine with epinephrine. The posterior capsule and external rotators were then repaired through drill holes and the posterior trochanter with 2 Tycron suture. The IT band was closed with #1 PDS suture in a running fashion. The subcutaneous tissue was then closed with two layers; the deep layer with #1 Vicryl suture and the subcutaneous tissue with 2-0 Dexon suture in a buried interrupted fashion. The skin was closed with skin charly. The leg was then cleaned, dried and a sterile dressing consisting of Xeoform, 4x4's, sterile ABD pad and foam tape was applied. The patient was then transferred to the recovery room in stable condition. The patient tolerated the procedure well and there were no complications. All instrument, needle and sponge counts are correct at the end of the operation.
--- NOTE | 2017-01-05 10:22 | Orthopedic Progress Note ---
Orthopedic Progress Note Date of Service Jan 05, 2017. Subjective Post OP Day: 1 Additional Notes: pain controlled. feeling a little dizzy. no other complaints. Objective calves soft nontender, N/V intact, hip located, toes mobile Date Time Temp Pulse Resp B/P (MAP) Pulse Ox O2 Delivery O2 Flow Rate FiO2 01/05/17 07:11 Room Air 01/05/17 07:11 37.0 58 16 102/60 (74) 96 Room Air 01/05/17 06:30 16 91 01/05/17 05:30 16 97 01/05/17 05:20 102/58 (73) 01/05/17 04:30 16 97 01/05/17 03:30 14 98 01/05/17 03:07 36.7 61 18 96/58 (71) 98 Nasal Cannula 2.0 01/05/17 02:30 16 98 01/05/17 01:30 16 98 01/05/17 00:30 16 98 01/04/17 23:59 Nasal Cannula 2.0 01/04/17 23:30 16 98 01/04/17 22:47 37.0 64 16 96/56 (69) 98 Nasal Cannula 2.0 01/04/17 22:34 16 98 01/04/17 21:49 16 97 01/04/17 20:53 16 96 01/04/17 20:00 96 Nasal Cannula 2.0 01/04/17 19:54 16 96 01/04/17 19:17 36.6 62 16 100/49 (66) 97 Nasal Cannula 2.0 01/04/17 19:00 14 98 01/04/17 18:07 14 96 01/04/17 18:04 65 112/58 (76) 01/04/17 17:48 66 104/49 (67) 01/04/17 17:30 65 86/49 (61) 01/04/17 17:00 14 98 01/04/17 15:49 14 98 01/04/17 15:09 36.3 65 16 95/52 (66) 100 Nasal Cannula 2.0 01/04/17 15:00 16 99 01/04/17 14:19 63 114/63 (80) 99 Nasal Cannula 2.0 01/04/17 14:05 14 98 01/04/17 12:45 16 97 01/04/17 12:35 59 18 110/63 (79) 97 01/04/17 11:48 14 99 01/04/17 11:33 57 19 110/61 (77) 99 Nasal Cannula 2.0 01/04/17 11:07 78 16 97/61 (73) 93 01/04/17 10:39 14 99 01/04/17 10:35 59 18 104/58 (73) 99 Laboratory Results 24 Hours: Test 01/05/17 05:10 White Blood Count 9.62 K/uL Red Blood Count 3.30 M/uL Hemoglobin 9.5 g/dL Hematocrit 30.1 % Mean Corpuscular Volume 91.2 fL Mean Corpuscular Hemoglobin 28.8 pg Mean Corpuscular Hemoglobin Concent 31.6 g/dl Platelet Count 202 K/uL Mean Platelet Volume 10.7 fL Neutrophils (%) (Auto) 71.2 % Lymphocytes (%) (Auto) 15.9 % Monocytes (%) (Auto) 9.9 % Eosinophils (%) (Auto) 2.6 % Basophils (%) (Auto) 0.2 % Neutrophils # (Auto) 6.85 K/uL Lymphocytes # (Auto) 1.53 K/uL Monocytes # (Auto) 0.95 K/uL Eosinophils # (Auto) 0.25 K/uL Basophils # (Auto) 0.02 K/uL Assessment & Plan Assessment: POD #1 from [facility]. Plan: 1.) DVT prophylaxis - TEDS + SCDs + Aspirin 2.) Pain contol - doing well with current treatment. Continue tylenol for pain. Has tramadol ordered if needed. 3.) Disposition - plan to discharge to rehab facility 4: Anemia: hgb 9.5 today. She is receiving Iron supplement
[2017-01-05] MEDS: CITALOPRAM 20 MG TAB PO SCH (13:01)
[2017-01-05] MEDS: TOLTERODINE TARTRATE 2 MG TAB PO SCH (13:01)
[2017-01-05] MEDS: CEROVITE ADV FORMULA TAB PO SCH (13:01)
[2017-01-05] MEDS: TRAMADOL HCL 50 MG TAB PO PRN ×2 (13:07→20:28)
[2017-01-05] MEDS: PYRIDOXINE HCL 50 MG TAB PO SCH (18:12)
[2017-01-05] MEDS: SENNA 8.6 MG TAB PO SCH (20:29)
[2017-01-06] MEDS: KETOROLAC TROMETHAMINE 15 MG/ML VIAL IV. SCH ×2 (01:34→07:22)
[2017-01-06] MEDS: ACETAMINOPHEN 500 MG TAB PO SCH ×2 (05:33→13:43)
[2017-01-06] MEDS: TRAMADOL HCL 50 MG TAB PO PRN (05:46)
[2017-01-06 06:41] VITALS: BP 122/69; PULSE 63; TEMP 36.5; O2SAT 95
[2017-01-06] MEDS: INSULIN HUMAN REGULAR SC SCH ×2 (07:21→12:52)
[2017-01-06] MEDS: DOCUSATE SODIUM 100 MG CAP PO SCH (07:22)
[2017-01-06] MEDS: DICYCLOMINE HCL 10 MG CAP PO SCH (07:23)
[2017-01-06] MEDS: FERROUS GLUCONATE 324 MG TAB PO SCH ×2 (07:23→11:47)
[2017-01-06] MEDS: POLYETHYLENE (MIRALAX) 17 GM PACK PO SCH (07:23)
[2017-01-06] MEDS: ASPIRIN 325 MG ECTAB PO SCH (07:23)
[2017-01-06] MEDS: PANTOprazole SOD 40 MG TAB PO SCH (07:23)
[2017-01-06] MEDS: MULTIVITAMIN TAB PO SCH (07:23)
[2017-01-06] MEDS: ROSUVASTATIN CALCIUM 10 MG TAB PO SCH (07:23)
--- NOTE | 2017-01-06 08:10 | Orthopedic Progress Note ---
Orthopedic Progress Note Date of Service Jan 06, 2017. Subjective Post OP Day: 2 Additional Notes: having quite a bit of hip pain Objective calves soft nontender, N/V intact, hip located, dressing C/D/I, A&O x3, toes mobile Date Time Temp Pulse Resp B/P (MAP) Pulse Ox O2 Delivery O2 Flow Rate FiO2 01/06/17 07:30 Room Air 01/06/17 06:41 36.5 63 16 122/69 (86) 95 Room Air 01/06/17 00:05 Room Air 01/05/17 23:07 37.0 61 16 115/53 (73) 96 Room Air 01/05/17 19:36 37.0 69 18 101/54 (70) 95 Room Air 01/05/17 15:50 Room Air 01/05/17 15:38 37.4 68 18 123/58 (79) 92 Room Air Assessment & Plan Assessment: POD #2 from [facility]. Plan: 1.) DVT prophylaxis - TEDS + SCDs + Aspirin 2.) Pain contol - doing well with current treatment. Continue tylenol for pain. Has tramadol ordered if needed. 3.) Disposition - plan to discharge to rehab facility 4: Anemia: She is receiving Iron supplement
[2017-01-06] MEDS: TOLTERODINE TARTRATE 2 MG TAB PO SCH (11:47)
[2017-01-06] MEDS: CITALOPRAM 20 MG TAB PO SCH (11:47)
[2017-01-06] MEDS: CEROVITE ADV FORMULA TAB PO SCH (11:47)
[2017-01-06 14:07] VITALS: BP 122/69; PULSE 63; TEMP 36.5; O2SAT 95
--- NOTE | 2017-01-08 13:21 | EDITING REQUIRED CODING QUERY ---
CODING QUERY ANEMIA To promote full compliance with coding requirements relating to patient care, physician participation is requested in all cases of enrollment coordinator uncertainty. Please assist us with the question(s) below: Coding Question(s): The record reflects the following clinical documentation: Anemia: hgb 9.5 today. She is receiving Iron supplement. HGB on admission was 12.6. There are several coding choices for this diagnosis and more specificity is needed for code selection. [place] indicate the type of anemia this patient had: (x ) Acute blood loss anemia (x ) Acute postoperative anemia due to dilutional fluids ( ) Chronic blood loss anemia ( ) Iron deficient anemia due to blood loss ( ) Iron deficiency anemia ( ) Anemia, unspecified or other ( ) Other: (please specify) ( ) Unable to determine Thank you for your time, JOANN Ramirez, SALES AND MARKETING ANALYST
--- NOTE | 2017-01-15 10:45 | Discharge Summary ---
Orthopedic Discharge Summary Admission Date/Reason Jan 04, 2017 at 06:35 Right Hip Pain, Degenerative Joint Disease. Discharge Date/Disposition Jan 06, 2017 Rehab Diagnosis Principal Diagnosis: RIGHT HIP DJD Procedure(s) Performed RIGHT [facility] Consultations NONE Medication Reconciliation New Medications: Acetaminophen (Sb Non-Aspirin Extra Stre) 500 Mg Tab 1000 MG PO Q8H for 30 Days, #180 TAB Take 3 times per day to lessen pain. Aspirin (Aspirin) 325 Mg Ectab 325 MG PO BID for 45 Days, #90 Take to prevent blood clots. Ferrous Gluconate (Ferrous Gluconate) 324 Mg Tab 324 MG PO BIDM for 30 Days, #60 TAB Take to rebuild blood count. Tramadol HCl (Tramadol HCl) 50 Mg Tab 50-100 MG PO Q6H PRN for Pain for 30 Days, #60 TAB PTake as needed for Pain. Continued Medications: Citalopram Hydrobromide (Celexa) 20 Mg Tab 20 MG PO QDL Cyanocobalamin (Vitamin B-12) Unknown Strength Tab Unknown Dose PO WK on Dicyclomine Hcl (Dicyclomine Hcl) 10 Mg Cap 10 MG PO DAILY [facility] Docusate Sodium (Colace) 100 Mg Cap 100 MG PO BID, CAP Metformin Hcl Er (Glucophage Er) 500 Mg Tab 500 MG PO TID Methylcellulose (Laxative) (Citrucel) 500 Mg Tab 1 TAB PO UD PRN for Constipation a couple times a week Multiple Vitamins W/ Minerals (One Daily For Women) 1 Tab Tab 1 TAB PO QDL Omeprazole (Prilosec) 20 Mg Cap 20 MG PO QAM Polyethylene Glycol 3350 (Miralax) 1 Pow Pow 17 GM PO DAILY Pyridoxine (Vitamin B6) 100 Mg Tab 100 MG PO QDD, TAB Rosuvastatin Calcium (Crestor) 5 Mg Tab 5 MG PO 2XWK on and Tolterodine Tartrate (Tolterodine Tartrate) 2 Mg Tab 4 MG PO QDL Discontinued Medications: Acetaminophen (Tylenol) 500 Mg Tab 500 MG PO HS PRN for Pain, TAB Aspirin (Aspirin Ec) 81 Mg Tab 81 MG PO HS Admission Physical Exam As per Admitting History & Physical. Hospital Course JAYESH WAS ADMITTED ON 01/04/17 AND UNDER WENT [facility]. SHE TOLERATED THE PROCEDURE WELL. THERE WERE NO COMPLICATIONS. SHE WAS TRANSFERRED TO THE PACU POST OP AND LATER TO THE ORTHOPEDIC FLOOR FOR FURTHER CARE. SHE WAS GIVEN ANCEF FOR ANTIBIOTIC PROPHYLAXIS. SINGH'S, SCD'S AND ASPIRIN FOR DVT PROPHYLAXIS. HER H/H AND VITAL SIGNS WERE MONITORED DURING HER HOSPITAL STAY AND REMAINED STABLE. SHE DEVELOPED SOME POST OP ANEMIA BUT DID NOT REQUIRE BLOOD TRANSFUSIONS. BY POD#2 SHE WAS TOLERATING A DIABETIC DIET. PAIN WAS CONTROLLED WITH ORAL PAIN MEDICINES. SHE WAS PARTICIPATING IN PT. SHE HAD NO S/S OF DVT. ON POD#2 SHE WAS TRANSFERRED TO REHAB. SHE WAS GIVEN PRINTED DISCHARGE INSTRUCTIONS INCLUDING PRESCRIPTIONS ABOVE. CONTINUE PT, WBAT, AND TOTAL HIP PRECAUTIONS. CONTINUE SINGH'S. FOLLOW UP IN 10-12 DAYS OR SOONER IF THERE ARE PROBLEMS OR CONCERNS. Discharge Instructions Please refer to the electronic Patient Visit Report (Discharge Instructions) for additional information.
== END 2017-01-06 16:00 | DRG 470 ==
LOC: C.ACU 05:07 → C.3E 06:35 → ENRESERV 09:12
PROVIDERS: ADMIT Orthopaedic Surgery Sports Medicine; ATTEND Orthopaedic Surgery Sports Medicine
PROC: 0SR902A Replacement of Right Hip Joint with Metal on Polyethylene Synthetic Substitute, Uncemented, Open Approach (ICD-10-PCS; principal; 2017-01-04 07:00)
DX: M16.11 Unilateral primary osteoarthritis, right hip (principal); D62 Acute posthemorrhagic anemia; M24.551 Contracture, right hip; M25.451 Effusion, right hip; J45.909 Unspecified asthma, uncomplicated; I10 Essential (primary) hypertension; E78.5 Hyperlipidemia, unspecified; K21.9 Gastro-esophageal reflux disease without esophagitis; K58.9 Irritable bowel syndrome, unspecified; E11.9 Type 2 diabetes mellitus without complications; F41.9 Anxiety disorder, unspecified; F32.9 Major depressive disorder, single episode, unspecified; M85.80 Other specified disorders of bone density and structure, unspecified site; Z79.82 Long term (current) use of aspirin; Z79.84 Long term (current) use of oral hypoglycemic drugs; Z79.899 Other long term (current) drug therapy

== ENCOUNTER → 2017-02-01 | Outpatient (CLI) | payer OTHER ==
[~2017-02-01] MED LIST changes: -ACET-1256 PO; +ACET-24 PO; +ASPEC325 PO; -ASPI81TA28 PO; -CALC500C3 PO; +FRRG PO; +ULT50X PO
[2017-02-01 13:07] LABS: HEMATOCRIT 39.3 % (37-47); MEAN CELL VOLUME 90.3 fL (80-100); MEAN CORPUSCULAR HEMOGLOBIN 29.2 pg (25-34); MEAN CORPUSCULAR HGB CONC 32.3 g/dl (32-36); MEAN PLATELET VOLUME 10.3 fL (7.4-10.4); PLATELET COUNT 390 K/uL (130-400); RED BLOOD COUNT 4.35 M/uL (4.2-5.4); WHITE BLOOD COUNT 8.81 K/uL (4.8-10.8)
[2017-02-01 13:15] LABS: ESTIMATED AVERAGE GLUCOSE 131 mg/dl; HA1C FLAG Normal (Normal)
[2017-02-01 15:01] LABS: BLOOD UREA NITROGEN 17 mg/dl (7-18); BUN/CREATININE RATIO 19.5 (10-20); CALCIUM 9.7 mg/dl (8.5-10.1); CARBON DIOXIDE 28 mmol/L (21-32); CHLORIDE 104 mmol/L (98-107); CREATININE 0.86 mg/dl (0.60-1.20); GLUCOSE 104 mg/dl (70-99); POTASSIUM 4.6 mmol/L (3.5-5.1); SODIUM 137 mmol/L (136-145)
[2017-02-01 15:06] LABS: CHOLESTEROL 129 mg/dl (0-200); FERRITIN 25.4 ng/ml (8.0-388.0); HDL CHOLESTEROL 43 mg/dl; LDL CHOLESTEROL CALCULATED 50 mg/dl; TRIGLYCERIDES 178 mg/dl (0-150); VERY LOW DENSITY LIPOPROT CALC 36 mg/dl
== END | disposition home or self-care (01) ==
LOC: C.LAB1850 12:02
PROVIDERS: ATTEND Internal Medicine
DX: E83.42 Hypomagnesemia (principal); E11.9 Type 2 diabetes mellitus without complications; M54.2 Cervicalgia; D64.9 Anemia, unspecified

== ENCOUNTER → 2017-05-19 | Outpatient (CLI) | payer OTHER ==
[2017-05-19 12:51] LABS: ALT/SGPT 18 U/L (12-78); AST/SGOT 11 U/L (15-37); BLOOD UREA NITROGEN 15 mg/dl (7-18); BUN/CREATININE RATIO 15.9 (10-20); CALCIUM 9.3 mg/dl (8.5-10.1); CARBON DIOXIDE 25 mmol/L (21-32); CHLORIDE 106 mmol/L (98-107); CREATININE 0.95 mg/dl (0.60-1.20); GLUCOSE 117 mg/dl (70-99); MAGNESIUM 1.9 mg/dl (1.8-2.4); POTASSIUM 4.1 mmol/L (3.5-5.1); SODIUM 138 mmol/L (136-145)
[2017-05-19 12:55] LABS: CHOLESTEROL 170 mg/dl (0-200); CHOLESTEROL/HDL RATIO 3.6; HDL CHOLESTEROL 47 mg/dl; LDL CHOLESTEROL CALCULATED 88 mg/dl; TRIGLYCERIDES 176 mg/dl (0-150); VERY LOW DENSITY LIPOPROT CALC 35 mg/dl
[2017-05-19 12:57] LABS: ESTIMATED AVERAGE GLUCOSE 143 mg/dl; HA1C FLAG Normal (Normal)
== END | disposition home or self-care (01) ==
LOC: C.LAB1850 10:56
PROVIDERS: ATTEND Internal Medicine
DX: E78.01 Familial hypercholesterolemia (principal); E11.9 Type 2 diabetes mellitus without complications; E83.42 Hypomagnesemia; K58.9 Irritable bowel syndrome, unspecified

== ENCOUNTER → 2017-08-04 | Outpatient (CLI) | payer OTHER ==
[2017-08-04 12:32] LABS: BLOOD UREA NITROGEN 19 mg/dl (7-18); CALCIUM 9.5 mg/dl (8.5-10.1); CARBON DIOXIDE 26 mmol/L (21-32); GLUCOSE 112 mg/dl (70-99); POTASSIUM 4.1 mmol/L (3.5-5.1); SODIUM 136 mmol/L (136-145)
[2017-08-04 12:59] LABS: HEMOGLOBIN A1C 6.4 % (4.5-5.6)
== END | disposition home or self-care (01) ==
LOC: C.LAB1850 10:48
PROVIDERS: ATTEND Internal Medicine
DX: E11.9 Type 2 diabetes mellitus without complications (principal)

== ENCOUNTER → 2018-02-09 | Outpatient (CLI) | payer OTHER ==
--- NOTE | 2018-02-10 14:35 | MAMMOGRAPHY REPORT ---
BILATERAL DIGITAL SCREENING MAMMOGRAM TOMOSYNTHESIS WITH CAD: 02/09/2018 CLINICAL HISTORY: Routine screening. Patient has no complaints. TECHNIQUE: The study was acquired using full field digital technology and interpreted from soft copy. Breast tomosynthesis in addition to standard 2D mammography was performed. Current study was also ev aluated with a Computer Aided Detection (CAD) system. COMPARISON: Comparison is made to exams dated: 01/03/2017 mammogram, 01/01/2016 mammogram, 12/30/2014 m ammogram, 12/26/2013 mammogram, 12/20/2012 mammogram, and 12/20/2011 mammogram - [facility] enter. BREAST COMPOSITION: The tissue of both breasts is heterogeneously dense, which may obscure small mass es. FINDINGS: No suspicious masses, calcifications, or areas of architectural distortion are noted in either breast . There has been no significant interval change compared to prior exams. IMPRESSION: ACR BI-RADS CATEGORY 1: NEGATIVE There is no mammographic evidence of malignancy. A 1 year screening mammogram is recommended.( 019) The patient will receive written notification of the results. Some breast cancers are not detected with mammography. A negative mammographic report should not michael y biopsy if a clinically suggestive mass is present. Payton Stern M.D. ah/:02/09/2018 15:35:01 Slubber Machine Operator: Key Morrison [facility] letter sent: Normal 1/2 BI-RADS Code: ACR BI-RADS Category 1: Negative
== END | disposition home or self-care (01) ==
LOC: C.MAMM 11:42
PROVIDERS: ATTEND Internal Medicine
DX: Z12.31 Encounter for screening mammogram for malignant neoplasm of breast (principal)

== ENCOUNTER 2022-06-18 05:45 | Observation (INO) ==
--- NOTE | 2022-05-13 09:19 | PAT Medication Instructions ---
Medication Instructions Date of Service May 13, 2022 Home Medications Medication Instructions Recorded oxybutynin chloride 5 mg tablet 5 mg PO TID #90 tabs 03/12/21 rosuvastatin 5 mg tablet See Rx Instructions PO 2XWK #30 03/12/21 tabs metformin 500 mg tablet,extended 1,000 mg PO BID #360 tabs 09/07/21 release 24 hr citalopram 40 mg tablet 20 mg PO QPM #45 tabs 11/02/21 omeprazole 40 mg capsule,delayed See Rx Instructions .Route 05/11/22 release .COMPLEX #90 caps blood sugar diagnostic #100 ea 05/12/22 aspirin 81 mg tablet,delayed release 81 mg PO HS blood-glucose meter dicyclomine 10 mg capsule 10 mg PO TID PRN docusate sodium 100 mg capsule (Colace) 100 mg PO QPM lancets 30 gauge (OneTouch Delica Lancets) methylcellulose (laxative) 500 mg tablet (Citrucel) 500 mg PO DAILY PRN polyethylene glycol 3350 17 gram/dose oral powder (Miralax) 17 gm PO DAILY PRN oxybutynin chloride 5 mg tablet 5 mg PO TID rosuvastatin 5 mg tablet See Rx Instructions PO 2XWK metformin 500 mg tablet,extended release 24 hr 1,000 mg PO BID citalopram 40 mg tablet 20 mg PO QPM omeprazole 40 mg capsule,delayed release See Rx Instructions .Route .COMPLEX blood sugar diagnostic cyanocobalamin (vitamin B-12) 2,500 mcg tablet 2,500 mcg PO QAM magnesium 250 mg tablet 250 mg PO 3XWK multivitamin 2 tab PO QAM polyethylene glycol 3350 17 gram/dose oral powder (Miralax) 17 g PO DAILY PRN pyridoxine (vitamin B6) 50 mg capsule (Vitamin B-6) 50 mg PO QAM Continue as directed rosuvastatin 5 mg tablet See Rx Instructions PO 2XWK omeprazole 40 mg capsule,delayed release See Rx Instructions .Route .COMPLEX DO NOT take the morning of surgery dicyclomine 10 mg capsule 10 mg PO TID PRN methylcellulose (laxative) 500 mg tablet (Citrucel) 500 mg PO DAILY PRN polyethylene glycol 3350 17 gram/dose oral powder (Miralax) 17 gm PO DAILY PRN oxybutynin chloride 5 mg tablet 5 mg PO TID metformin 500 mg tablet,extended release 24 hr 1,000 mg PO BID cyanocobalamin (vitamin B-12) 2,500 mcg tablet 2,500 mcg PO QAM magnesium 250 mg tablet 250 mg PO 3XWK multivitamin 2 tab PO QAM polyethylene glycol 3350 17 gram/dose oral powder (Miralax) 17 g PO DAILY PRN pyridoxine (vitamin B6) 50 mg capsule (Vitamin B-6) 50 mg PO QAM Take evening before surgery aspirin 81 mg tablet,delayed release 81 mg PO HS (unless directed otherwise by surgeon) dicyclomine 10 mg capsule 10 mg PO TID PRN(if needed) docusate sodium 100 mg capsule (Colace) 100 mg PO QPM oxybutynin chloride 5 mg tablet 5 mg PO TID metformin 500 mg tablet,extended release 24 hr 1,000 mg PO BID citalopram 40 mg tablet 20 mg PO QPM Other Notes NOTHING TO EAT OR DRINK AFTER MIDNIGHT. If you have any questions please call us at [phone] or [phone] or [phone] or [phone]
--- NOTE | 2022-05-18 11:37 | Anesthesiology Consultation ---
Date of Service May 18, 2022 Assessment & Plan (1) Encounter for pre-operative examination: - PCP pre-op evaluation. - check BSG am DOS. - Pt states that she received COVID booster over 1 week ago and had significant somnolence, inability to move lower extremities improving though to gait abnormalities with visual changes and confusion. States she contacted PCP and feels nearly to baseline with exception to some mild memory changes. Denies any respiratory symptoms. Outpatient joint assessment: Patient is currently scheduled for inpatient pathway. If re-evaluated pending system levels during current pandemic/surgeon requests outpatient pathway, patient is not recommended candidate for outpatient joint program from anesthesia standpoint. Chart Review Chart Review: Pending: Refer to Additional Notes / Consult section and Patient seen in Pre Admission Testing Teaching & Discussion Pre-Anesthesia Teaching/Discussion Notes: Instructed NPO after midnight before surgery, except medications with 15 cc of water. Medication instructions provided according to the PAT guidelines. History Surgery Operation Date: 06/18/22 10:25 Proposed Procedures p Left Anterior Total Hip Arthroplasty - Geoffrey Pedroza, Height/Weight Height: 5 ft 5.5 in Weight: 75.296 kg Allergies Allergy/AdvReac Type Severity Reaction Status Date / Time niacin Allergy Severe CAN'T Verified 05/12/22 11:18 SWALLOW strawberry Allergy Severe SWALLOW Verified 05/12/22 11:18 ISSUE Sulfa (Sulfonamide Allergy Intermediate HIVES Verified 05/12/22 11:18 Antibiotics) walnut Allergy Intermediate Cough Verified 05/12/22 11:18 mold Allergy Unknown UNSURE Verified 05/12/22 11:18 calcium AdvReac Mild DYSPEPSIA Verified 05/12/22 11:18 Fish Allergy Intermediate SWALLOW Uncoded 05/12/22 11:18 ISSUES WOOD SMOKE AdvReac Mild "CAN'T Uncoded 05/12/22 11:18 STAND THE SMELL OF IT" Medications Home Medications Medication Instructions Recorded Confirmed Last Taken aspirin 81 mg tablet,delayed 81 mg PO HS 04/24/19 05/12/22 05/07/19 release blood-glucose meter #1 ea 04/24/19 04/05/22 Unknown dicyclomine 10 mg capsule 10 mg PO TID PRN Abdominal 04/24/19 05/12/22 05/07/19 Discomfort docusate sodium 100 mg capsule 100 mg PO QPM 04/24/19 05/12/22 05/07/19 (Colace) lancets 30 gauge (OneTouch Delica #25 ea 04/24/19 04/05/22 Unknown Lancets) methylcellulose (laxative) 500 mg 500 mg PO DAILY PRN Constipation 04/24/19 05/12/22 Unknown tablet (Citrucel) polyethylene glycol 3350 17 17 gm PO DAILY PRN Constipation 04/24/19 04/05/22 Unknown gram/dose oral powder (Miralax) rosuvastatin 5 mg tablet See Rx Instructions PO 2XWK #30 03/12/21 05/12/22 Unknown tabs metformin 500 mg tablet,extended 1,000 mg PO BID #360 tabs 09/07/21 05/12/22 Unknown release 24 hr citalopram 40 mg tablet 20 mg PO QPM #45 tabs 11/02/21 05/12/22 Unknown omeprazole 40 mg capsule,delayed See Rx Instructions .Route 05/11/22 05/12/22 Unknown release .COMPLEX #90 caps cyanocobalamin (vitamin B-12) 2,500 mcg PO QAM 05/12/22 05/12/22 Unknown 2,500 mcg tablet magnesium 250 mg tablet 250 mg PO 3XWK 05/12/22 05/12/22 Unknown multivitamin 2 tab PO QAM 05/12/22 05/12/22 Unknown polyethylene glycol 3350 17 17 g PO DAILY PRN Constipation 05/12/22 05/12/22 Unknown gram/dose oral powder (Miralax) pyridoxine (vitamin B6) 50 mg 50 mg PO QAM 05/12/22 05/12/22 Unknown capsule (Vitamin B-6) blood sugar diagnostic #100 ea 05/13/22 Unknown oxybutynin chloride 5 mg tablet 5 mg PO TID #90 tabs 05/13/22 Unknown Past Medical History Medical History (Updated 05/18/22 @ 11:50 by Cora Coleman PA-C) Asthma denies need for inhaler, pt states is well controlled without recent issues Claustrophobia Diabetes mellitus, type 2 NIDDM Fibromyalgia Gastroparesis GERD (gastroesophageal reflux disease) controlled, stable per pt 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 Exercise / Class Metabolic Activity II 4-5 Yardwork/Stairs/Walk up hill (denies CP or SOB with 1 FOS) Past Family History Family History Sister Diabetes Arthritis Breast cancer Family/Other Breast cancer Grandmother (Maternal) Family history of diabetes mellitus Grandfather (Maternal) Family history of diabetes mellitus Mother Polycythemia vera CHF (congestive heart failure) Father Chronic liver disease Arthritis Other No family history of adverse response to anesthesia Denies family history of Colon cancer Ovarian cancer Prostate cancer Myocardial infarction Past Surgical History Surgical History (Updated 05/18/22 @ 11:51 by Cora Coleman PA-C) H/O hand surgery R, LUMP REMOVED FOR TIP OF MIDDLE FINGER History of bilateral tubal ligation History of cataract surgery RT/LEFT History of colonoscopy History of esophagogastroduodenoscopy (EGD) (04/2019) History of tonsillectomy History of tooth extraction S/P hip replacement RT Past Anesthesia History No Hx of Anesthesia Complications and No Family Hx of Anesthesia Complications History of PONV No Hx of PONV and Hx of Motion Sickness Social History Smoking Status: Never smoker Do You Dip or Chew Tobacco: No Hx Alcohol Use: No Hx Substance Use: No substance use type: does not use Review of Systems Patient denies chest pain, shortness of breath, dyspnea on exertion, snoring, witnessed apneas, fever, chills, cough, wheezing, or palpitations. Physical Exam Vital Signs Vitals BP 151/66 P 62 TEMP 98.7 SP02 96% on RA RESP 18 Physical Full cervical extension range of motion without pain TMD < 3 finger breadths Mallampati Score 2 Dentition: intact, several crowns throughout; denies chipped or loose teeth, implants or bridges Lungs: normal respiratory effort. Clear throughout to auscultation, no adventitious breath sounds Cardiac: regular rate and rhythm, no murmurs noted Carotid arteries: negative bruit bilat Lab Results Anesthesia Preop Results Results Anesthesia Widget: WBC 7.75 K/ul (4.8-10.8) 05/18/22 Hgb 13.3 g/dl (12.0-16.0) 05/18/22 Hct 40.1 % (34.1-44.9) 05/18/22 Plt 270 K/uL (130-400) 05/18/22 Na 137 mmol/L (136-145) 05/18/22 K 4.2 mmol/L (3.5-5.1) 05/18/22 Cl 104 mmol/L (98-107) 05/18/22 CO2 25 mmol/L (21-32) 05/18/22 BUN 13 mg/dl (6-23) 05/18/22 Creat 0.88 mg/dl (0.6-1.2) 05/18/22 Glucose Level 153 mg/dl (70-99(Fasting)) H 05/18/22 PT 11.1 Seconds (9.0-12.0) 05/18/22 PTT 25.3 Seconds (21.0-31.0) 05/18/22 INR 1.0 (0.9-1.1) 05/18/22 TSH 2.056 uIu/ml (0.300-4.500) 03/29/22 HA1c 7.2 % (4.5-5.6) H 05/18/22 Blood Type A Positive 05/18/22 Antibody Screen NEGATIVE 05/18/22 Testing Electrocardiogram Date: 05/18/22 NSR, rate 62 bpm Chest X-Ray Date: 05/18/22 No lines and tubes are seen. The cardiomediastinal silhouette is normal. The lungs are clear. No evidence of pleural effusion or pneumothorax. Degenerative changes are seen in the spine. IMPRESSION: No acute chest disease. COVID-19 Risk Screen Screening Information COVID-19 Screen Date: 05/18/22 Exposure 21 Days Family/Household +COVID Last 21 Days: No Exposure 10 Days Any COVID Exposure Last 10 Days: No Symptoms Last 10 Days Experienced COVID Sx Last 10 Days: No + COVID 0-90 Days COVID + in Last 0-90 Days: No
--- NOTE | 2022-06-17 07:25 | History & Physical Report ---
Date of Service June 17, 2022 Assessment & Plan (1) Degenerative joint disease of left hip: We will proceed with a left anterior total of arthroplasty. Postoperatively she will be started on aspirin for DVT prophylaxis and kept overnight in the hospital for postoperative medical management. She plans to have the hospital set up home health upon discharge. History of Present Illness Chief Complaint: Osteoarthritis of the left hip. Primary Care Provider: Thiago Daly MD Elizabeth is a pleasant 86-year-old female who underwent a right hip replacement by Dr. Gore in 2017. She had to go to a nursing facility for a few weeks postoperatively. She has done well with her right hip. Unfortunately, she is not dealing with left hip pain. A lot of pain is located in her groin. After failing extensive conservative treatment, she has elected to proceed with a left anterior total of arthroplasty. Allergies Allergy/AdvReac Type Severity Reaction Status Date / Time niacin Allergy Severe CAN'T Verified 06/09/22 13:09 SWALLOW strawberry Allergy Severe SWALLOW Verified 06/09/22 13:09 ISSUE Sulfa (Sulfonamide Allergy Intermediate HIVES Verified 06/09/22 13:09 Antibiotics) walnut Allergy Intermediate Cough Verified 06/09/22 13:09 mold Allergy Unknown UNSURE Verified 06/09/22 13:09 calcium AdvReac Mild DYSPEPSIA Verified 06/09/22 13:09 Fish Allergy Intermediate SWALLOW Uncoded 06/09/22 13:09 ISSUES WOOD SMOKE AdvReac Mild "CAN'T Uncoded 06/09/22 13:09 STAND THE SMELL OF IT" Home Medications Medication Instructions Recorded Confirmed Type aspirin 81 mg tablet,delayed 81 mg PO HS 04/24/19 06/09/22 History release blood-glucose meter #1 ea 04/24/19 04/05/22 History dicyclomine 10 mg capsule 10 mg PO TID PRN Abdominal 04/24/19 06/09/22 History Discomfort docusate sodium 100 mg capsule 100 mg PO QPM 04/24/19 06/09/22 History (Colace) lancets 30 gauge (OneTouch Delica #25 ea 04/24/19 06/09/22 History Lancets) methylcellulose (laxative) 500 mg 500 mg PO DAILY PRN Constipation 04/24/19 06/09/22 History tablet (Citrucel) polyethylene glycol 3350 17 17 gm PO DAILY PRN Constipation 04/24/19 06/09/22 History gram/dose oral powder (Miralax) metformin 500 mg tablet,extended 1,000 mg PO BID #360 tabs 09/07/21 06/09/22 Rx release 24 hr citalopram 40 mg tablet 20 mg PO QPM #45 tabs 11/02/21 06/09/22 Rx omeprazole 40 mg capsule,delayed See Rx Instructions .Route 05/11/22 06/09/22 Rx release .COMPLEX #90 caps cyanocobalamin (vitamin B-12) 2,500 mcg PO QAM 05/12/22 06/09/22 History 2,500 mcg tablet magnesium 250 mg tablet 250 mg PO 3XWK 05/12/22 06/09/22 History multivitamin 2 tab PO QAM 05/12/22 06/09/22 History polyethylene glycol 3350 17 17 g PO DAILY PRN Constipation 05/12/22 06/09/22 History gram/dose oral powder (Miralax) pyridoxine (vitamin B6) 50 mg 50 mg PO QAM 05/12/22 06/09/22 History capsule (Vitamin B-6) blood sugar diagnostic #100 ea 05/13/22 06/09/22 Rx oxybutynin chloride 5 mg tablet 5 mg PO TID #90 tabs 05/13/22 06/09/22 Rx rosuvastatin 5 mg tablet See Rx Instructions PO 2XWK #30 06/01/22 06/09/22 Rx tabs Past Med/Surg History Medical History Asthma denies need for inhaler, pt states is well controlled without recent issues Claustrophobia Diabetes mellitus, type 2 NIDDM Fibromyalgia Gastroparesis GERD (gastroesophageal reflux disease) controlled, stable per pt 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 Hyperlipidemia MVP (mitral valve prolapse) NO CARDS OAB (overactive bladder) Tinnitus Surgical History H/O hand surgery R, LUMP REMOVED FOR TIP OF MIDDLE FINGER History of bilateral tubal ligation History of cataract surgery RT/LEFT History of colonoscopy History of esophagogastroduodenoscopy (EGD) (04/2019) History of tonsillectomy History of tooth extraction S/P hip replacement RT Family History Sister Diabetes Arthritis Breast cancer Family/Other Breast cancer Grandmother (Maternal) Family history of diabetes mellitus Grandfather (Maternal) Family history of diabetes mellitus Mother Polycythemia vera CHF (congestive heart failure) Father Chronic liver disease Arthritis Other No family history of adverse response to anesthesia Denies family history of Colon cancer Ovarian cancer Prostate cancer Myocardial infarction Social History Smoking Status: Never smoker Second Hand Exposure: Yes (ON OCC); Do You Dip or Chew Tobacco: No; Hx Alcohol Use: No Hx Substance Use: No Preferred Language: Polish Communication Ability: Effective Visual Impairment: No Limitations Hearing Ability: Use of Hearing Aid Beauty Parlor Cleaner Required: No Beliefs That Will Affect Care: None marital status: Current Living Situation: Spouse current occupational status: retired Feels Safe at Home: Yes Safety Concerns: Feels Safe At This Time Childhood Exposure to Second-Hand Smoke: No Dental Care, Regularly: Yes Physical Activity Frequency: Does not Exercise Seatbelt Use: always Assistive Devices: Glasses and Hearing Aid - Bilateral Assistive Devices Comment: READING GLASSES Review of Systems All systems reviewed & are unremarkable except as noted in HPI & below. Physical Exam On physical examination of the left hip, she is able to lie flat. I can flex her to about 90 degrees. She has 20 degrees of external rotation 0 degrees of internal rotation. She has pain at end ranges of motion.. Constitutional WD/WN, vitals as above Eyes PERRL, conjunctivae normal, anicteric sclerae ENMT external ear and nose normal, oropharynx normal Neck trachea midline, no thyromegaly Respiratory normal respiratory effort, lungs clear to auscultation Cardiovascular RRR, no murmur, no edema Gastrointestinal (Abdomen) normal bowel sounds, soft, nontender, no hepatosplenomegaly Skin no rashes, warm and dry Psychiatric A+Ox3, euthymic affect Results & Data Results & Data Laboratory Results . Diagnostic Findings X-rays of the left hip show advanced osteoarthritis with joint space narrowing, osteophyte formation, and [id number] articulation. There is a well-placed right total hip arthroplasty.. PG Care Time/CCT Total # of Minutes Spent Total Time Spent with Patient: Total time spent is greater than 50% in coordination of care (as documented) at patient's floor/unit and/or counseling patient: Coding Level of Care Code None Diagnoses Degenerative joint disease of left hip M16.12
[2022-06-18] MEDS ORDERED: dexAMETHasone 4 MG TAB PO SCH (06:00)
[2022-06-18] MEDS ORDERED: LR 60ML/HR IV SCH (06:00)
[2022-06-18] MEDS ORDERED: LR 500ML BOLUS, THEN 15ML/HR IV SCH (06:00)
[2022-06-18] MEDS ORDERED: TRANEXAMIC ACID 1,000 MG **IV Pre-op IV SCH (06:00)
[2022-06-18] MEDS ORDERED: TRANEXAMIC ACID 1,000 MG **IV Intra-op IV SCH (06:00)
[2022-06-18] MEDS ORDERED: GABAPENTIN 300 MG CAP PO SCH (06:00)
[2022-06-18] MEDS ORDERED: ACETAMINOPHEN 500 MG TAB PO SCH ×2 (06:00→14:00)
[2022-06-18] MEDS ORDERED: ceFAZolin 2000MG 2,000 MG/15 ML SYR IV SCH (06:00)
[2022-06-18] MEDS ORDERED: FAMOTIDINE 20 MG TAB PO SCH (06:00)
[2022-06-18] MEDS ORDERED: ORTHO JOINT MIX INFIL SCH (06:00)
--- NOTE | 2022-06-18 06:21 | History & Physical Bridge Note ---
Date of Service June 18, 2022 History & Physical Bridge Note I have examined the patient, reviewed the History & Physical and in the interval since the performance of the History & Physical I have noted the following changes of clinical significance: no changes noted
[2022-06-18] MEDS ORDERED: BUPIVACAINE 0.5 % 5 MG/1 ML PF 10ML VIAL ONE (06:28)
[2022-06-18] MEDS ORDERED: MIDAZOLAM HCL 1 MG/ML 2ML VIAL ONE (06:58)
[2022-06-18] MEDS ORDERED: KETAMINE 50 MG/5 ML SYRINGE ONE (06:58)
[2022-06-18] MEDS ORDERED: PROPOFOL IV EMULSION 10 MG/ML 20 ML VIAL IV ONE (07:02)
[2022-06-18] MEDS ORDERED: GLYCOPYRROLATE 0.2 MG/ML VIAL ONE (07:02)
[2022-06-18] MEDS ORDERED: ONDANSETRON INJ 2 MG/ML 2 ML VIAL ONE (07:02)
[2022-06-18] MEDS ORDERED: DEXAMETHASONE SOD INJ 4 MG/ML VIAL ONE (07:02)
[2022-06-18] MEDS ORDERED: LIDOCAINE 2% MPF LOCAL 5 ML VIAL INFIL ONE (07:02)
[2022-06-18] MEDS ORDERED: ORTHO JOINT ANESTHETIC ONE (07:30)
[2022-06-18] MEDS ORDERED: KETOROLAC 30 MG/ML VIAL IV PRN (08:10)
[2022-06-18] MEDS ORDERED: ePHEDrine sulfate 50 MG/ML AMP IV PRN (08:10)
[2022-06-18] MEDS ORDERED: ATROPINE SULFATE 0.1 MG/ML 10ML SYR IV PRN (08:10)
[2022-06-18] MEDS ORDERED: ONDANSETRON INJ 2 MG/ML 2 ML VIAL IV PRN ×3 (08:10→19:10)
[2022-06-18] MEDS ORDERED: HYDROmorphone INJ 1 MG/ML SYRINGE IV PRN (08:10)
--- NOTE | 2022-06-18 09:26 | Operative Report ---
PG Post Operative Report Pre & Post Diagnosis Operation Date: 06/18/22 08:10 Pre-Op Diagnosis: DJD Left Hip Post-Op Diagnosis: DJD Left Hip I identified the patient and participated in the time-out.: Yes Procedure Operation Date: 06/18/22 08:10 Actual Procedures p Left Anterior Total Hip Arthroplasty(Left) - Geoffrey Pedroza DO Surgeon Geoffrey Pedroza DO Yarn Weigher Geoffrey Avery PA-C Estimated Blood Loss 250 Findings Consistent with Post-Op Diagnosis Specimens Left femoral head Description of Procedure Implants used I used a ZimmerBiomet total hip arthroplasty system with a size 3 standard offset Avenir Complete stem, a 50 mm G7 cup with a 25mm screw, an E1 polyethylene liner, a 32 mm ceramic head with a 0 neck. Elizabeth arrived at the hospital for the above procedure. She was seen in the preoperative holding area and the operative extremity was identified and signed. She was given a spinal anesthetic, a preoperative antibiotic, and TXA. She was then taken back to the operating room and laid on the table in the supine position. She was given basic sedation. The operative leg was secured to a Puristst leg positioner. The hip was then prepped and draped in sterile fashion. A timeout was done and the patient and the operative extremity was properly identified. An anterior approach was used. Dissection was taken down through the fascia and the tensor muscle belly was retracted laterally and the rectus was retracted medially. The circumflex vessels were identified and ligated. The capsule was then incised and tagged for later repair. The femoral neck was then cut and the femoral head was removed. The acetabulum was exposed. Time was spent doing a complete circumferential labral release. Sequential reaming of the acetabulum up to a size 49 reamer was done. Final reamings were done under fluoroscopy to ensure appropriate version. A Biomet 50 mm G7 cup was then impacted into place. A single 25 mm screw was placed. The E1 polyethylene liner was then snapped into place. Surrounding soft tissues were then injected with 100 cc of an orthopedic pain control cocktail. The proximal femur was then exposed. Sequential broaching up to a size 3 broach was done. Off that broach a size 32 head with a 0 neck was trialed. The hip was reduced and fluoroscopic images showed anatomic alignment of the implants in acceptable length. The broach was removed. The final size 3 standard offset Avenir Complete stem was then impacted into place. A ceramic 32 mm head with a 0 neck was then impacted onto the stem and the hip was reduced. Final fluoroscopic images showed anatomic alignment of the hip. The capsule was then closed with #1 Vicryl suture. A dilute betadyne lavage was then done for 3 minutes. The joint was then irrigated with normal saline solution. The fascia was closed with #1 PDS suture. Skin was closed with 2-0 Vicryl, charly, and a Silverlon dressing. She was then transferred to a hospital bed and taken to the post anesthesia care unit in stable condition. She tolerated the procedure well. Geoffrey Avery PA-C, was present for the entire procedure. He was critical for patient positioning, prepping, draping, retraction exposure, wound closure and application of sterile dressing. I attest to the content of the Intraoperative Record and any orders documented therein. Any exceptions are noted below.
--- NOTE | 2022-06-18 10:39 | XRay Report ---
XR hip 1V LT w pelvis CLINICAL HISTORY: Postoperative evaluation. COMPARISON: Pelvis and hip radiographs February 03, 2022. FINDINGS: Alignment of the total left hip arthroplasty is anatomic. No periprosthetic fracture or un expected radiopaque foreign body. There are skin charly. Right hip arthroplasty is incidentally note d. IMPRESSION: Expected findings following total left hip arthroplasty. ACT 112: Negative or not required by law. Electronically signed by: Brendon Gomes M.D. 06/18/2022 10:38 AM
--- NOTE | 2022-06-18 11:04 | Anesthesiology Progress Note ---
Date of Service June 18, 2022 Anesthesia Post Procedure Vital Signs Vital Signs: Temp Pulse Pulse Resp BP Pulse Ox O2 Del Method 06/18/22 10:55 53 L 12 123/54 L 96 Nasal Cannula 06/18/22 10:45 52 L 13 121/53 L 97 Nasal Cannula 06/18/22 10:35 53 L 14 118/56 L 97 Nasal Cannula 06/18/22 10:25 53 L 13 118/55 L 96 Nasal Cannula 06/18/22 10:15 54 L 12 130/55 L 96 Nasal Cannula 06/18/22 10:05 55 L 12 131/55 L 96 Oxymask 06/18/22 09:55 59 L 18 135/61 99 Oxymask 06/18/22 09:48 36.8 C 60 13 129/61 95 Oxymask 06/18/22 06:24 36.9 C 63 20 176/91 H 94 Room Air O2 Flow Rate 06/18/22 10:55 2 06/18/22 10:45 2 06/18/22 10:35 2 06/18/22 10:25 2 06/18/22 10:15 2 06/18/22 10:05 4 06/18/22 09:55 4 06/18/22 09:48 4 06/18/22 06:24 Transfer of Care Handoff Completed per policy Notes Mental Status: alert / awake / arousable Patient Amnestic to Procedure: Yes Nausea / Vomiting: adequately controlled Pain: adequately controlled Airway Patency, RR, SpO2: stable & adequate BP & HR: stable & adequate Hydration State: stable & adequate Neuraxial Anesthesia: was administered and sensory block is resolving Anesthetic Complications: no major complications apparent
[2022-06-18] MEDS ORDERED: METOCLOPRAMIDE HCL INJ 5 MG/ML 2 ML VIAL IV PRN ×2 (11:45→19:03)
[2022-06-18] MEDS ORDERED: HYDROmorphone INJ 0.5 MG/0.5 ML SYR IV PRN ×2 (11:45→19:01)
[2022-06-18] MEDS ORDERED: bisacodyL 10 MG SUPP PR PRN ×2 (11:45→19:09)
[2022-06-18] MEDS ORDERED: MAGNESIUM HYDROXIDE SUSP 30 ML UDC PO PRN ×2 (11:45→19:07)
[2022-06-18] MEDS ORDERED: oxyCODONE HCL IR 5 MG TAB (IMMEDIATE RELEASE) PO PRN (11:45)
[2022-06-18] MEDS ORDERED: PHARMACY GLYCEMIC MGMT CONSULT PRN ×2 (11:45→17:36)
[2022-06-18] MEDS ORDERED: NALOXONE HCL 0.4 MG/1 ML VIAL/CARP IV PRN (11:45)
[2022-06-18] MEDS ORDERED: SODIUM CHLORIDE 0.9% 1000ML 1,000 ML IV SCH (11:45)
[2022-06-18] MEDS ORDERED: DICYCLOMINE HCL 10 MG CAP PO PRN (11:45)
[2022-06-18] MEDS ORDERED: KETOROLAC TROMETHAMINE 15 MG/ML VIAL IV SCH (11:45)
--- NOTE | 2022-06-18 12:03 | Fluoroscopy Report ---
FL hip LT 1V CLINICAL HISTORY: LT ANTERIOR TECHNIQUE: 1 views were obtained with the C-arm in the OR with the above procedure. Total fluoroscopy time was 24 seconds. Comparison: None available at the time of this dictation. FINDINGS/IMPRESSION: Intraoperative images were obtained of the left hip total arthroplasty. Please correlate with intraoperative fluoroscopy and operative report. ACT 112: Negative or not required by law. Electronically signed by: Yefri Polanco M.D. 06/18/2022 12:01 PM
[2022-06-18] MEDS ORDERED: CARBOHYDRATES FOR HYPOGLYCEMIA PO PRN (18:00)
[2022-06-18] MEDS ORDERED: GLUCAGON FOR INJ 1 MG VIAL IM PRN (18:00)
[2022-06-18] MEDS ORDERED: GLUCOSE 10 TAB/TUBE PO PRN (18:00)
[2022-06-18] MEDS ORDERED: DEXTROSE 50% 50 ML SYRINGE IV PRN (18:00)
[2022-06-18] MEDS ORDERED: GLUCOSE 40% GEL 15 GM TUBE PO PRN (18:00)
[2022-06-18] MEDS: ceFAZolin 2000MG 2,000 MG/15 ML SYR IV SCH (18:22)
[2022-06-18] MEDS: SODIUM CHLORIDE 0.9% 1000ML 1,000 ML IV SCH ×2 (19:31→23:55)
[2022-06-18] MEDS: KETOROLAC TROMETHAMINE 15 MG/ML VIAL IV SCH (19:32)
[2022-06-18] MEDS: ASPIRIN 81 MG ECTAB PO SCH (20:08)
[2022-06-18] MEDS: DOCUSATE SODIUM 100 MG CAP PO SCH (20:08)
[2022-06-18] MEDS: SENNA 8.6 MG TAB PO SCH (20:08)
[2022-06-18] MEDS: CITALOPRAM 20 MG TAB PO SCH (20:08)
[2022-06-18] MEDS: oxyCODONE HCL IR 5 MG TAB (IMMEDIATE RELEASE) PO PRN (20:26)
[2022-06-18] MEDS ORDERED: LANTUS PER UNIT CHARGE SQ ONE (21:00)
[2022-06-18] MEDS ORDERED: SENNA 8.6 MG TAB PO SCH (21:00)
[2022-06-18] MEDS ORDERED: ASPIRIN 81 MG ECTAB PO SCH (21:00)
[2022-06-18] MEDS ORDERED: DOCUSATE SODIUM 100 MG CAP PO SCH (21:00)
[2022-06-18] MEDS: ACETAMINOPHEN 500 MG TAB PO SCH (21:34)
[2022-06-18] MEDS: INSULIN ASPART PER UNIT SC SCH (21:35)
[2022-06-18] MEDS ORDERED: Nursing to Pharmacy Communication SCH (22:15)
[2022-06-19] MEDS: ceFAZolin 2000MG 2,000 MG/15 ML SYR IV SCH (00:01)
[2022-06-19] MEDS: KETOROLAC TROMETHAMINE 15 MG/ML VIAL IV SCH ×4 (01:47→19:31)
[2022-06-19] MEDS: oxyCODONE HCL IR 5 MG TAB (IMMEDIATE RELEASE) PO PRN ×2 (01:49→20:50)
[2022-06-19] MEDS ORDERED: INSULIN ASPART PER UNIT SC ONE (02:00)
[2022-06-19] MEDS: ACETAMINOPHEN 500 MG TAB PO SCH ×3 (05:37→21:31)
--- NOTE | 2022-06-19 07:53 | Orthopedic Progress Note ---
Date of Service June 19, 2022 Assessment & Plan (1) Status post left hip replacement: Overall she is doing fairly well. She is not having too much pain in the hip. She will be seen by physical therapy today for ambulation and range of motion exercises. She is on aspirin for DVT prophylaxis. We will keep her in the hospital today for ambulation and pain control. Right now the plan is to discharge to home tomorrow, but we will see how she does. Hortencia Johnson was seen and examined at bedside this morning. Overall she is doing very well. She is not having much pain in the left hip. She was up and ambulating to the bathroom yesterday. She has no complaints.. Review of Systems All systems reviewed & are unremarkable except as noted in HPI & below. Physical Exam On physical examination of the left hip, the dressing is clean and dry. Her leg is out full extension. She has active dorsiflexion plantarflexion of her left ankle.. Results & Data Results & Data Laboratory Results . Diagnostic Findings Postoperative x-rays of the left hip show the prosthesis to be in anatomic alignment without any evidence of fracture, cage, or loosening. PG Care Time/CCT Total # of Minutes Spent Total Time Spent with Patient: Total time spent is greater than 50% in coordination of care (as documented) at patient's floor/unit and/or counseling patient: Coding Level of Care Code 10267 Post Operative Follow-Up Diagnoses Status post left hip replacement Z96.642
[2022-06-19] MEDS: ASPIRIN 81 MG ECTAB PO SCH ×2 (08:53→20:45)
[2022-06-19] MEDS: DOCUSATE SODIUM 100 MG CAP PO SCH ×2 (08:53→20:45)
[2022-06-19] MEDS: MULTIVITAMIN TAB PO SCH (08:54)
[2022-06-19] MEDS ORDERED: LANTUS PER UNIT CHARGE SQ SCH (09:00)
[2022-06-19] MEDS: INSULIN ASPART PER UNIT SC SCH ×4 (09:02→20:47)
[2022-06-19 11:06] LABS: Basophils # (auto) 0.03 K/uL (0-0.2); Basophils % (auto) 0.3 %; Eosinophils # (auto) 0.01 K/uL (0-0.50); Eosinophils % (auto) 0.1 %; Hematocrit (blood only) 31.4 % (34.1-44.9); Hemoglobin 10.6 g/dl (12.0-16.0); Immature Granulocytes # (auto) 0.02 K/uL (0.00-0.02); Immature Granulocytes % (auto) 0.2 %; Lymphocytes # (auto) 2.31 K/uL (1.2-3.4); Lymphocytes % (auto) 20.4 %; Mean Corpuscular Hemoglobin 30.5 pg (25.0-34.0); Mean Corpuscular Hgb Conc 33.8 g/dL (32.0-36.0); Mean Corpuscular Volume 90.5 fL (80.0-100.0); Mean Platelet Volume 10.7 fL (9.4-12.3); Monocytes # (auto) 0.73 K/uL (0.24-0.82); Monocytes % (auto) 6.4 %; Neutrophils # (auto) 8.23 K/uL (1.4-6.5); Neutrophils % (auto) 72.6 %; Platelet Count 251 K/uL (130-400); RDW Coefficient of Variation 12.9 % (11.5-14.5); RDW Standard Deviation 42.4 fL (36.4-46.3); Red Blood Count 3.47 M/uL (3.93-5.22); White Blood Count 11.33 K/ul (4.8-10.8)
--- NOTE | 2022-06-19 11:12 | Hospitalist Consultation ---
Date of Consultation June 19, 2022 Assessment & Plan (1) Postoperative bradycardia: - Patient with essentially asymptomatic postoperative bradycardia since arrival to PACU yesterday, with HR between 4060, lowest 39 recorded this AM. - Patient worked with PT this morning, HR increased to a max of 62 with a mbulation, had 1 incident of lightheadedness that completely resolved with being placed back in her bed. - EKG: Sinus bradycardia with premature atrial complexes, ventricular rate 50, QTc 448. - She does not have any cardiac history and is not on any home medications known to cause bradycardia which can be held. - At this time, given previous bradycardia after an EGD in 2019 and patient self-reported low resting HR at baseline, suspect this may be anesthesia related. - We will continue to monitor, should she become symptomatic or HR consistently drops below 40 without appropriate chronotropic response, will pursue additional cardiac w/u. - Consideration was given to hypothyroidism with reports of fatigue, dry skin but TSH was checks in March and was normal, has been wnl on labs since 2018. Supervising Physician Co-Signing Physician Notes I personally saw and examined the patient. I verified all hobbs points and agree with Stephania Leahy PA-C with the following exceptions and/or additions: 87 year old female POD#1 left THR A/P Left THR - pain and VTE management Bradycardia - longstanding, EKG without heart block, asymptomatic, not on any AV pepe charly medications. No intervention needed GERD - her routine omeprazole not prescribed, given Toradol use will increase her PPI dose to pantoprazole 40mg PO BID during hospitalization. Can resume her usual omeprazole on discharge T2DM - HbA1C 7.2 - pharmacy consulted for insulin control during her inpatient stay. metformin can be continued on discharge Thank you for the consult. Bradycardia requires no follow up unless symptomatic. We will sign off at this time. Please contact [facility] hospitalist correction worker if any questions or concerns. History of Present Illness Reason for Consultation: post-op bradycardia Requesting Physician: Geoffrey Pedroza DO Attending Physician: Geoffrey Pedroza DO History of Present Illness Elizabeth Woods is an 87 y/o female with a past medical history significant for DM2, GERD, gastroparesis, asthma, fibromyalgia and overactive bladder who was admitted yesterday, 06/19 for a left total hip arthroplasty with Dr. Pedroza. Per operative report, the procedure went as planned with estimated 250 cc EBL. Hospitalist group was consulted on POD#1 for post-operative bradycardia. Patient's HR this morning was noted to be 39 by nursing staff, rechecked by nurse noted to be in low 40s. Her HR has continued to be monitored, ranging between 4050, with increased to high 50s/low 60s when working with physical therapy. She notes 1 incident of "feeling sorely "in the head while working with physical therapy. She was immediately brought back to her bed, and reports near immediate resolution of her symptoms after sitting. Since the surgery, she has been feeling well without any chest pain, palpitations, shortness of breath, irregular heartbeats, or lightheadedness, dizziness other than the previously mentioned episode this morning. She reports that she has been told in the past that she has a slow heart rate. She has no cardiac history, denies any heart attacks, heart failure, or arrhythmias requiring any intervention. On chart review, she has consistently had heart rates in the 60s, and during an EGD in 2019 HR was between 4050. She states that over the past couple months she has had fatigue and perhaps dry her skin, however is unsure if this is due to the winter weather. She has had her thyroid checked in the past, to the best of her knowledge her labs have always been normal. Per chart review, TSH indeed has been within normal limits every time it has been checked since 2019. Allergies Allergy/AdvReac Type Severity Reaction Status Date / Time niacin Allergy Severe CAN'T Verified 06/18/22 06:04 SWALLOW strawberry Allergy Severe SWALLOW Verified 06/18/22 06:04 ISSUE Fish Containing Products Allergy Intermediate Difficulty Verified 06/18/22 11:38 Swallowing Sulfa (Sulfonamide Allergy Intermediate HIVES Verified 06/18/22 06:04 Antibiotics) walnut Allergy Intermediate Cough Verified 06/18/22 06:04 mold Allergy Unknown UNSURE Verified 06/18/22 06:04 calcium AdvReac Mild DYSPEPSIA Verified 06/18/22 06:04 Home Medications Medication Instructions Recorded Confirmed Type aspirin 81 mg tablet,delayed 81 mg PO HS 04/24/19 06/18/22 History release blood-glucose meter #1 ea 04/24/19 04/05/22 History dicyclomine 10 mg capsule 10 mg PO TID PRN Abdominal 04/24/19 06/09/22 History Discomfort docusate sodium 100 mg capsule 100 mg PO QPM 04/24/19 06/09/22 History (Colace) lancets 30 gauge (OneTouch Delica #25 ea 04/24/19 06/09/22 History Lancets) methylcellulose (laxative) 500 mg 500 mg PO DAILY PRN Constipation 04/24/19 06/09/22 History tablet (Citrucel) polyethylene glycol 3350 17 17 gm PO DAILY PRN Constipation 04/24/19 06/09/22 History gram/dose oral powder (Miralax) metformin 500 mg tablet,extended 1,000 mg PO BID #360 tabs 09/07/21 06/18/22 Rx release 24 hr citalopram 40 mg tablet 20 mg PO QPM #45 tabs 11/02/21 06/18/22 Rx omeprazole 40 mg capsule,delayed See Rx Instructions .Route 05/11/22 06/09/22 Rx release .COMPLEX #90 caps cyanocobalamin (vitamin B-12) 2,500 mcg PO QAM 05/12/22 06/09/22 History 2,500 mcg tablet magnesium 250 mg tablet 250 mg PO 3XWK 05/12/22 06/09/22 History multivitamin 2 tab PO QAM 05/12/22 06/09/22 History polyethylene glycol 3350 17 17 g PO DAILY PRN Constipation 05/12/22 06/09/22 History gram/dose oral powder (Miralax) pyridoxine (vitamin B6) 50 mg 50 mg PO QAM 05/12/22 06/09/22 History capsule (Vitamin B-6) blood sugar diagnostic #100 ea 05/13/22 06/09/22 Rx oxybutynin chloride 5 mg tablet 5 mg PO TID #90 tabs 05/13/22 06/09/22 Rx rosuvastatin 5 mg tablet See Rx Instructions PO 2XWK #30 06/01/22 06/09/22 Rx tabs Patient History Medical History Asthma denies need for inhaler, pt states is well controlled without recent issues Claustrophobia Diabetes mellitus, type 2 NIDDM Fibromyalgia Gastroparesis GERD (gastroesophageal reflux disease) controlled, stable per pt 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 Hyperlipidemia MVP (mitral valve prolapse) NO CARDS OAB (overactive bladder) Tinnitus Surgical History H/O hand surgery R, LUMP REMOVED FOR TIP OF MIDDLE FINGER History of bilateral tubal ligation History of cataract surgery RT/LEFT History of colonoscopy History of esophagogastroduodenoscopy (EGD) (04/2019) History of tonsillectomy History of tooth extraction S/P hip replacement RT Family History Sister Diabetes Arthritis Breast cancer Family/Other Breast cancer Grandmother (Maternal) Family history of diabetes mellitus Grandfather (Maternal) Family history of diabetes mellitus Mother Polycythemia vera CHF (congestive heart failure) Father Chronic liver disease Arthritis Other No family history of adverse response to anesthesia Denies family history of Colon cancer Ovarian cancer Prostate cancer Myocardial infarction Social History Smoking Status: Never smoker Second Hand Exposure: Yes (ON OCC); Do You Dip or Chew Tobacco: No; Hx Alcohol Use: No Hx Substance Use: No Preferred Language: Surinamese Communication Ability: Effective Visual Impairment: No Limitations Hearing Ability: Use of Hearing Aid 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 Beliefs That Will Affect Care: None marital status: Current Living Situation: Spouse current occupational status: retired Feels Safe at Home: Yes Safety Concerns: Feels Safe At This Time Childhood Exposure to Second-Hand Smoke: No Dental Care, Regularly: Yes Physical Activity Frequency: Does not Exercise Seatbelt Use: always Assistive Devices: Glasses, Hearing Aid - Bilateral and Walker Assistive Devices Comment: READING GLASSES Review of Systems 2 Review of Systems: Constitutional: on episode of lightheadedness with PT this AM, resolved immediately with being put back in bed; No fever/chills, fatigue, myalgias, anorexia, night sweats Eyes: No diplopia, no worsening or blurred vision ENT: normal hearing, no trouble swallowing Respiratory: No cough, sputum, dyspnea at rest or on exertion Cardiovascular: No chest pain, tightness or palpitations Abdomen: No pain, nausea, vomiting, diarrhea or constipation : Denies dysuria, hematuria, increased urgency/frequency, urinary retention Musculoskeletal: No joint pain, calf pain, swelling Neurologic: No weakness, numbness/tingling, or balance problems Psychiatric: No anxiety or depression Skin: No rash or itch Physical Exam Physical Exam: General: awake, alert, no apparent distress Head: Normocephalic, atraumatic ENT: PERRL, EOMI, no pharyngeal exudate, mucous membranes moist Chest: Clear to auscultation, on room air, no adventitious breath sounds Cardiac: bradycardic rate, regular rhythm, no murmur, no JVD, normal peripheral pulses, good capillary refill Abdominal: NABS x 4 quadrants, soft, nontender to palpation, no rebound, guarding or tenderness Extremities: Normal inspection, no peripheral edema or erythema, calfs nontende r to palpation Psych: Normal mood and affect Neuro: AAO x 3, strength intact bilaterally and rated 5/5, no motor deficits, speech is clear, no peripheral sensory deficits Skin: no rash or erythema Results & Data Results & Data ([facility]) Vital Signs (Past 12 Hours) Vital Signs Temp Pulse Pulse Resp BP Pulse Ox O2 Del Method 06/19/22 10:43 50 L 06/19/22 07:45 Room Air 06/19/22 09:44 50 L 06/19/22 08:56 46 L 06/19/22 08:15 36.3 C L 42 L 18 120/60 95 Room Air 06/19/22 02:55 36.6 C 52 L 18 121/72 95 Room Air 06/18/22 23:46 36.8 C 47 L 16 129/74 95 Room Air Laboratory Results Abnormal lab results 06/18/22 06/18/22 06/18/22 Range/Units 12:37 14:34 17:03 WBC (4.8-10.8) K/ul RBC (3.93-5.22) M/uL Hgb (12.0-16.0) g/dl Hct (34.1-44.9) % Neut # (Auto) (1.4-6.5) K/uL Sodium (136-145) mmol/L BUN/Creatinine Ratio (10-20) Glucose (70-99(Fasting)) mg/dl POC Glucose 180 H 215 H 258 H (70-99) mg/dl Calcium (8.5-10.1) mg/dl Total Protein (6.0-8.3) gm/dl Globulin (2.5-4.0) gm/dl 06/18/22 06/19/22 06/19/22 Range/Units 20:24 01:53 08:10 WBC (4.8-10.8) K/ul RBC (3.93-5.22) M/uL Hgb (12.0-16.0) g/dl Hct (34.1-44.9) % Neut # (Auto) (1.4-6.5) K/uL Sodium (136-145) mmol/L BUN/Creatinine Ratio (10-20) Glucose (70-99(Fasting)) mg/dl POC Glucose 251 H 151 H 133 H (70-99) mg/dl Calcium (8.5-10.1) mg/dl Total Protein (6.0-8.3) gm/dl Globulin (2.5-4.0) gm/dl 06/19/22 06/19/22 Range/Units 10:54 10:54 WBC 11.33 H (4.8-10.8) K/ul RBC 3.47 L (3.93-5.22) M/uL Hgb 10.6 L (12.0-16.0) g/dl Hct 31.4 L (34.1-44.9) % Neut # (Auto) 8.23 H (1.4-6.5) K/uL Sodium 135 L (136-145) mmol/L BUN/Creatinine Ratio 22.9 H (10-20) Glucose 146 H (70-99(Fasting)) mg/dl POC Glucose (70-99) mg/dl Calcium 8.1 L (8.5-10.1) mg/dl Total Protein 5.6 L (6.0-8.3) gm/dl Globulin 2.1 L (2.5-4.0) gm/dl Diagnostic Findings Hip X-Ray 06/18/22 08:10 FL hip LT 1V CLINICAL HISTORY: LT ANTERIOR TECHNIQUE: 1 views were obtained with the C-arm in the OR with the above procedure. Total fluoroscopy time was 24 seconds. Comparison: None available at the time of this dictation. FINDINGS/IMPRESSION: Intraoperative images were obtained of the left hip total arthroplasty. Please correlate with intraoperative fluoroscopy and operative report. ACT 112: Negative or not required by law. Electronically signed by: Yefri Polanco M.D. 06/18/2022 12:01 PM Hip/Pelvis X-Ray 06/18/22 09:52 XR hip 1V LT w pelvis CLINICAL HISTORY: Postoperative evaluation. COMPARISON: Pelvis and hip radiographs February 03, 2022. FINDINGS: Alignment of the total left hip arthroplasty is anatomic. No per iprosthetic fracture or unexpected radiopaque foreign body. There are skin charly. Right hip arthroplasty is incidentally noted. IMPRESSION: Expected findings following total left hip arthroplasty. ACT 112: Negative or not required by law. Electronically signed by: Brendon Gomes M.D. 06/18/2022 10:38 AM ECG Additional Comments: Sinus bradycardia with Premature atrial complexes Otherwise normal ECG When compared with ECG of 18-MAY-2022 12:03, Premature atrial complexes are now Present. PG Care Time/CCT Total # of Minutes Spent Total Time Spent with Patient: Total time spent is greater than 50% in coordination of care (as documented) at patient's floor/unit and/or counseling patient: Coding Level of Care Code 66942 Inpt Consult Level 3 Diagnoses Postoperative bradycardia I97.89
[2022-06-19 11:26] LABS: Albumin Globulin Ratio 1.7 (0.9-2); Albumin Level 3.5 gm/dl (3.4-5.0); BUN Creatinine Ratio 22.9 (10-20); Bilirubin,Total 0.4 mg/dl (0.2-1.0); Calcium 8.1 mg/dl (8.5-10.1); Creatinine Clr Calc Pharmacy 43.4 ml/min; Est GFR (African American) 62.5 ml/min; Est GFR (Non-African American) 53.9 ml/min; Globulin 2.1 gm/dl (2.5-4.0); Potassium 3.5 mmol/L (3.5-5.1); Total Protein 5.6 gm/dl (6.0-8.3)
--- NOTE | 2022-06-19 13:15 | Pharmacy Report ---
Pharmacy Glycemic Short Note 2 - Date of Service June 19, 2022 - Glycemic Short BSG Results (Last 24 hours): 06/18/22 06/18/22 06/18/22 14:34 17:03 20:24 Glucose POC Glucose 215 H 258 H 251 H 06/19/22 06/19/22 06/19/22 01:53 08:10 10:54 Glucose 146 H POC Glucose 151 H 133 H 06/19/22 12:02 Glucose POC Glucose 124 H OUTPATIENT ANTIDIABETIC REGIMEN: * metformin 1 g PO BIDM HbA1c: 7.2% (05/18/22) ASSESSMENT: * MM is a 87 year old female POD #1 s/p left total hip arthroplasty * Received IV/PO dexamethasone in OR - no ongoing steroids ordered * Reasonably outpatient glycemic control based on A1c and age with metformin only * Will utilize weight-based stress of 2 Novolog and ~0.15 unit/kg basal PLAN FOR INPATIENT GLYCEMIC CONTROL: * Hold outpatient oral diabetes medications * Basal insulin * Lantus 10 units SQ daily * Bolus insulin * NovoLog per scale ACHS or Q6hrs while NPO * Goal Range: Low 110 mg/dL - High 140 mg/dL * Correction Factor: 30 mg/dL/unit * Nutritional / Prandial insulin per carb ratio of 1 unit per 10 grams CHO consumed
[2022-06-19] MEDS: SODIUM CHLORIDE 0.9% 1000ML 1,000 ML IV SCH ×2 (14:48→22:08)
[2022-06-19] MEDS: CITALOPRAM 20 MG TAB PO SCH (20:45)
[2022-06-19] MEDS ORDERED: PANTOprazole 40 MG TAB PO SCH (21:00)
[2022-06-19] MEDS: SENNA 8.6 MG TAB PO SCH (21:32)
[2022-06-20] MEDS: KETOROLAC TROMETHAMINE 15 MG/ML VIAL IV SCH ×3 (01:40→13:18)
[2022-06-20] MEDS: ACETAMINOPHEN 500 MG TAB PO SCH ×2 (05:57→13:17)
--- NOTE | 2022-06-20 07:58 | Orthopedic Progress Note ---
Date of Service June 20, 2022 Assessment & Plan (1) Status post left hip replacement: She seems to be doing fairly well. She is not having too much pain in the left hip. She was slow to ambulate yesterday with physical therapy. She was seen by the hospitalist yesterday and was just determined to have baseline bradycardia. She is relatively asymptomatic. She will be seen by physical therapy today for ambulation and range of motion exercises. She is hoping to go home later today. If she does not feel stable on her feet we can keep her until tomorrow. I did tell her, if she is not ready to go home tomorrow then we should start looking at rehab placement options. She understands this. She is currently on aspirin for DVT prophylaxis. Hortencia Johnson was seen and examined at bedside this morning. She is not having too much pain in the left hip. She has been a little slow to ambulate with physical therapy. She was seen by the hospitalist yesterday for bradycardia and it was determined to be a baseline finding and she is relatively asymptomatic. Otherwise, she has no complaints.. Review of Systems All systems reviewed & are unremarkable except as noted in HPI & below. Physical Exam On physical examination of left hip, the dressing is clean and dry. Her leg lengths are equal. She has active dorsiflexion plantarflexion of her left ankle.. Results & Data Results & Data Laboratory Results . Diagnostic Findings . PG Care Time/CCT Total # of Minutes Spent Total Time Spent with Patient: Total time spent is greater than 50% in coordination of care (as documented) at patient's floor/unit and/or counseling patient: Coding Level of Care Code 23416 Post Operative Follow-Up Diagnoses Status post left hip replacement Z96.642
[2022-06-20] MEDS: DOCUSATE SODIUM 100 MG CAP PO SCH (08:43)
[2022-06-20] MEDS: ASPIRIN 81 MG ECTAB PO SCH (08:43)
[2022-06-20] MEDS: MULTIVITAMIN TAB PO SCH (08:44)
[2022-06-20] MEDS: INSULIN ASPART PER UNIT SC SCH ×2 (08:53→12:56)
[2022-06-20] MEDS: SODIUM CHLORIDE 0.9% 1000ML 1,000 ML IV SCH (09:44)
[2022-06-20] MEDS ORDERED: ROSUVASTATIN CALCIUM 5 MG TAB PO SCH (21:00)
--- NOTE | 2022-06-21 05:53 | Electrocardiogram Report ---
Test Reason : Blood Pressure : / mmHG Vent. Rate : 050 BPM Atrial Rate : 050 BPM P-R Int : 188 ms QRS Dur : 086 ms QT Int : 492 ms P-R-T Axes : 075 050 081 degrees QTc Int : 448 ms Sinus bradycardia with Premature atrial complexes Otherwise normal ECG When compared with ECG of 18-MAY-2022 12:03, Premature atrial complexes are now Present Confirmed by Eliseo Lanza ([id number]) on 06/21/2022 5:52:48 AM Referred By: Geoffrey Pedroza Confirmed By:Eliseo Lanza
--- NOTE | 2022-06-21 08:47 | Discharge Summary ---
Date of Service June 21, 2022 Admission HPI (Per Admitting) Elizabeth is a pleasant 86-year-old female who underwent a right hip replacement by Dr. Gore in 2017. She had to go to a nursing facility for a few weeks postoperatively. She has done well with her right hip. Unfortunately, she is not dealing with left hip pain. A lot of pain is located in her groin. After failing extensive conservative treatment, she has elected to proceed with a left anterior total of arthroplasty. Admission Exam (Per Admitting) On physical examination of the left hip, she is able to lie flat. I can flex her to about 90 degrees. She has 20 degrees of external rotation 0 degrees of internal rotation. She has pain at end ranges of motion.. Principal Diagnosis Same as "Discharge Diagnosis" noted below under Discharge Instructions. Discharge Exam On physical examination of left hip, the dressing is clean and dry. Her leg lengths are equal. She has active dorsiflexion plantarflexion of her left ankle.. Discharge Data Consultations 06/19/22 10:48 Consult Hospitalist Routine Procedures Performed Operation Date: 06/18/22 08:10 Actual Procedures p Left Anterior Total Hip Arthroplasty(Left) - Geoffrey Pedroza DO Ordered Studies 06/18/22 08:10 FL hip LT 1V Routine Hospital Course (1) Status post left hip replacement: On June 18, 2022 Elizabeth arrived at [facility] and underwent a left hip replacement without complication. She had a spinal anesthetic. Postoperatively she was transferred to the general orthopedic floors and started on aspirin for DVT prophylaxis. Her hospital course was uneventful. On postop day #1, her vital signs were mostly stable and her pain was well controlled. She was a little bradycardic. This is almost baseline for her. She was seen by the hospitalist and they just diagnosed her with asymptomatic postoperative bradycardia. She was able to work well with physical therapy. On postop day #2 she continued to do well. She was able to work well with physical therapy again. She was then discharged home. She will follow-up with orthopedics in 2 weeks. PG Care Time/CCT Total # of Minutes Spent Total Time Spent with Patient: Total time spent is greater than 50% in coordination of care (as documented) at patient's floor/unit and/or counseling patient: Discharge Plan Discharge Items Patient Disposition: Home - Home Health Services Reason For Visit: DJD Left Hip Discharge Diagnosis: Left hip replacement Activity: Per Instructions section Non-emergency contact: Surgeon Call non-emergency contact if: your wound has increased redness and your wound has increased drainage Follow-up/Referrals: Thiago Daly MD [Primary Care Provider] - Diet: Regular Addtl Attending Provider Instructions: Activity and Therapy Recommendations: * If you are using [facility] then therapy will be provided at your home until they feel you have accomplished all of your goals. * If you are using [facility] then Physical Therapy will be provided until they feel you are ready to start Outpatient Physical Therapy. * If you are not using home therapy then Outpatient Physical Therapy should start about 3-5 days from your day of surgery. Therapy will last about 6-10 weeks * You were shown a series of exercises in the hospital. Do these exercises three times each day including the exercises you were shown in physical therapy. * Get up and walk several times each day.~ For the first four weeks, try not to stand or walk for more than one hour at a time. If you do stand or walk for more than one hour, you will not hurt anything, but your leg will likely swell.~~ * As you feel comfortable, you may change from the walker or crutches to a cane and~then to independent walking. Medications: * Narcotic You will likely be sent home from the hospital with a prescription for the narcotic pain medication that worked best throughout your stay. * Aspirin Most patients will be required to take Aspirin 81mg twice a day for 6 weeks after surgery. This is obtained [id number] and a prescription is not necessary. * Other medications may be prescribed for specific circumstances. If you have any questions, please call the office at . * Resume previous home medications unless otherwise instructed TEDs/Elastic Stockings: The white elastic stockings help limit swelling and prevent blood clots from forming in your legs. The more you wear them, the more they work. Wear them for six weeks. Dressing Care: Leave the Silverlon dressing in place for 7 days. After 7 days you may remove the dressing. If the incision is not draining then you may leave the charly open to air. If there is a little bit of drainage or if the charly are getting stuck on your clothing then cover the incision with a dry dressing. The charly will be removed at your 2 week follow-up appointment. Showering: You may shower with the Silverlon dressing in place. Do not let the shower spray hit the dressing directly. Pat the Silverlon dressing dry. If the dressing becomes wet underneath, then simply remove the dressing. Keep the incision dry until you are 7 days out from the day of surgery. After 7 days you may remove the Silverlon dressing and shower with the charly exposed. Let soapy water run over the charly and pat them dry. Do not scrub or soak the incision. Things To Watch For: * Drainage from the incision site that occurs more than one week after your surgery. * Increased redness at the incision site. * Fever above 102 degrees Fahrenheit. * Unusual chest pain or shortness of breath. * Call [facility] at with any of the above problems Follow-Up Visit: Follow-up with Dr. Pedroza's PA (Geoffrey Avery) 2-3 weeks after your day of surgery. He will remove your charly and answer any questions. If you have any additional questions or concerns, Dr Pedroza is usually in the office at the same time and will be available An appointment was probably scheduled when you signed-up for surgery in the office. If you have any questions call Office Instructions: More detailed instructions as well as Frequently Asked Questions were provided in a folder by our office when you signed-up for surgery. Please review these instructions when you get home. If you have any further questions or concerns, please feel free to call the office at [phone] Pending Studies at Discharge: No Stand-Alone Forms: My [facility], Pain - Opioid Pain Management Medications and DC Order Prescriptions: New oxycodone-acetaminophen 5-325 mg tablet 1 tab PO Q6H PRN (Reason: pain) Qty: 30 0RF Continued metformin 500 mg tablet extended release 24 hr 1,000 mg PO BID Qty: 360 3RF citalopram 40 mg tablet 20 mg PO QPM Qty: 45 3RF omeprazole 40 mg capsule,delayed release(DR/EC) See Rx Instructions .ROUTE .COMPLEX Qty: 90 0RF Dose Instruction: Take 1 capsule by mouth once daily Label Comments: TAKES AT LUNCH TIME Rx Instructions: Take 1 capsule by mouth once daily (DME) blood sugar diagnostic Strip See Dose Instructions .ROUTE .MEDSUPPLY Qty: 100 5RF Dose Instruction: As directed Rx Instructions: TEST 3 TIMES DAILY oxybutynin chloride 5 mg tablet 5 mg PO TID Qty: 90 3RF Label Comments: "ONLY TAKE SOMETIMES" rosuvastatin 5 mg tablet See Patient Comments PO 2XWK Qty: 30 3RF Rx Instructions: TUESDAY/SUNDAYS-PM polyethylene glycol 3350 [Miralax] 17 gram/dose powder 17 gm PO DAILY PRN (Reason: Constipation) docusate sodium [Colace] 100 mg capsule 100 mg PO QPM dicyclomine 10 mg capsule 10 mg PO TID PRN (Reason: Abdominal Discomfort) Citrucel 500 mg tablet 500 mg PO DAILY PRN (Reason: Constipation) (DME) lancets [OneTouch Delica Lancets] 30 gauge misc See Dose Instructions .ROUTE .MEDSUPPLY Qty: 25 Rx Instructions: As directed (DME) blood-glucose meter kit See Dose Instructions .ROUTE .MEDSUPPLY Qty: 1 Rx Instructions: As directed multivitamin Tablet 2 tab PO QAM magnesium 250 mg Tablet 250 mg PO 3XWK polyethylene glycol 3350 [Miralax] 17 gram/dose Powder 17 g PO DAILY PRN (Reason: Constipation) Vitamin B-6 50 mg Capsule 50 mg PO QAM cyanocobalamin (vitamin B-12) 2,500 mcg Tablet 2,500 mcg PO QAM Changed aspirin 81 mg tablet,delayed release (DR/EC) 81 mg PO BID 42 Days Qty: 0 0RF Discharge Orders: Discharge Order (Routine); Ordered 06/20/22 Ordered By: Geoffrey Schwarz/Other Patient Handouts: DVT Post Op Prevention Admission Data Admit Date/Time: 06/18/22 09:52 Attending Provider: Geoffrey Pedroza Admit Provider: Geoffrey Pedroza Primary Care Provider: Thiago Daly Other Providers: Ayaan Valles Other Interventions: Discharge Summary Assessment (RN) Last Done: 06/20/22 12:05
[2022-06-21] MEDS ORDERED: MAGNESIUM OXIDE 400 MG TAB PO SCH (09:00)
== END 2022-06-20 14:18 | disposition home health service (06) ==
LOC: ASU 05:45 → 3E 05:45